=== PATIENT | female | born 1985 | race Caucasian/White ===

== ENCOUNTER 2020-09-07 16:04 | Outpatient (REF) | payer MEDICAID, SELFPAY | END 2020-09-07 16:05 | disposition home or self-care (01) | LOC: HO.LAB 16:04 | PROVIDERS: PCP Internal Medicine; Visit Provider Internal Medicine | DX: Z20.828 Contact with and (suspected) exposure to other viral communicable diseases (principal) | CPT/HCPCS: 87635 ==

== ENCOUNTER 2021-01-01 13:35 | Emergency (ER) | payer MEDICAID, SELFPAY | END 2021-01-01 17:03 | disposition left against medical advice (07) | PROVIDERS: Emergency Provider Emergency Medicine | DX: L02.91 Cutaneous abscess, unspecified (principal) ==

== ENCOUNTER 2021-03-30 14:00 | Emergency (ER) | payer MEDICAID, SELFPAY ==
[2021-03-30 14:37] VITALS: BP 141/88; PULSE 75; RESP 18; TEMP 36.6; O2SAT 100; BMI 23.8
--- NOTE | 2021-03-30 14:59 | ED.HA ---
HPI - Headache General Chief Complaint: Headache Stated Complaint: lt side headache Time Seen by Provider: 03/30/21 14:45 Source: patient Mode of arrival: ambulatory Limitations: no limitations History of Present Illness HPI Narrative: 36 y/o female with history of migraine headaches presents to the ER with 1 week of left sided headache. She states it started gradually and has gotten worse over the last week. It is throbbing in nature. It involved her entire left side of her head including ear, face and mouth. She reports increase in nasal discharge, green color the last 2 days. She has left sided sinus pain as well. No fever, chills, SOB or cough. She has been taking Excedrin Migraine and Tylenol without improvement. She denies weakness, numbness, tingling or neck pain. MD elicited complaint: headache Pertinent past history: migraines Onset (ago): week(s) (1) Onset description: gradually Location: left Severity: severe Quality & Timing: aching and throbbing Exacerbating factors: light and noise Relieving factors: rest Associated symptoms: photophobia, sensitivity to sound and other (ear pain, mouth pain, sinus pain) Treatments prior to arrival: none Related Data Previous Rx's Medication Instructions Recorded amoxicillin-pot clavulanate 1 tab PO BID #14 tab 03/30/21 [Augmentin] myhmhbcfpj-wjraohkwnipfu-xtlh 1 tab PO Q6H PRN #10 tab 03/30/21 fluticasone propionate [Flonase 1 spray INTRANASAL BID #16 g 03/30/21 Allergy Relief] Allergies Allergy/AdvReac Type Severity Reaction Status Date / Time No Known Allergies Allergy Unverified 08/10/20 17:34 Review of Systems Review of Systems: Constitutional: No Fever, No Chills ENT/Mouth: + sore throat (mild, scratchy), + Rhinorrhea, No Swallowing Difficulty Eyes: No Eye Pain, No Swelling, No Redness Cardiovascular: No Chest Pain, No SOB, No Orthopnea, No Edema Respiratory: No Cough, No Sputum, No Wheezing, No dyspnea Gastrointestinal: No Nausea, No Vomiting, No Diarrhea, No abdominal Pain Genitourinary: No Dysuria, No Urinary Frequency, No Hematuria Musculoskeletal: No joint pain, No Myalgias Skin: No Skin Lesions, No rash Neuro: No Weakness, No Numbness, No Dizziness, + Headache Heme/Lymph: No Bruising, No Lymphadenopathy [facility] Past Medical History Attestation statement: The following information was validated with the patient. Medical History Migraines Social History Social History Advance Directives: Yes Advance Directives Information Provided: No Advance Directives on File: No Patient : No Physical Exam Vital Signs: Vital Signs: Last Vital Signs Temp 98.4 F 03/30/21 15:30 Pulse 62 03/30/21 15:30 Resp 18 03/30/21 15:30 BP 145/88 H 03/30/21 15:30 Pulse Ox 100 03/30/21 15:30 Body Mass Index 23.8 Appearance: Alert. Oriented X3. Appears to be uncomfortable, tearful, crying. Eyes: Pupils equal, round and reactive to light. EOMI, no nystagmus ENT: Pharynx normal. Left TM is erythematous and bulging with fluid behind the TM without rupture Neck: Normal inspection. Neck supple. CVS: Normal heart rate and rhythm. Pulses normal. Respiratory: No respiratory distress. Breath sounds normal. Abdomen: Soft and nontender. +BS x4 Skin: Skin warm and dry. Normal skin color. Normal skin turgor. No rashes. Extremities: No lower extremity edema. Neuro: Oriented X 3. No motor deficit. No sensory deficit. Course Course Course Narrative: 36 y/o female presenting with 1 week of left sided throbbing headache that involves ear, sinus, and mouth. Exam is consistent with left sided AOM and possible sinus infection as well. Will start on Augmentin. Will also treat headache with Toradol, Benadryl and Reglan. Will reassess. Reevaluation(s) Reevaluation #1: Headache is improved. She feels better. She is stable for d/c home with PO abx, Fiorcet and Flonase. She was encouraged to f/u with PCP next week or come back to the ER if pain worsens. MDM - Headache Differential Diagnosis Differential diagnosis: Likely migraine, tension headache, headache, meningitis and sinusitis Medical Records Attestation: I reviewed the patient's medical records. Critical Care Time Critical Care Time Critical Care Time: No Discharge Plan Discharge Clinical Impression: Acute ear infection Qualifiers: Laterality: left Qualified Code(s): H66.92 - Otitis media, unspecified, left ear Headache Qualifiers: Headache type: tension-type Headache chronicity pattern: acute headache Intractability: not intractable Qualified Code(s): G44.209 - Tension-type headache, unspecified, not intractable Acute sinus infection Qualifiers: Sinusitis location: maxillary Recurrence: non-recurrent Qualified Code(s): J01.00 - Acute maxillary sinusitis, unspecified Patient Disposition: Home, Self-Care Instructions: Sinusitis (ED), Ear Infection (ED), General Headache (ED) Additional Instructions: You are being treated for a sinus & ear infection with antibiotic - take it 2 times per day for 1 week. Use the nasal spray as directed. Take the prescribed medication as needed for pain. Take Motrin as needed for headaches. Follow up with your doctor next week. If you have any worsening symptoms come back to the ER for further evaluation. Est? recibiendo tratamiento para sarah infecci?n de los senos nasales y del o?do con antibi?ticos: t?melos 2 veces al d?a terence 1 semana. Use el aerosol nasal cherelle se indica. [place] el medicamento recetado seg?n sea necesario para el dolor. [place] Motrin seg?n sea necesario para los jana de jeronimo. Jerson un seguimiento con orona m?dico la pr?xima semana. Si tiene alg?n s?ntoma que empeora, regrese a la adam de emergencias para sarah evaluaci?n adicional. Prescriptions: New amoxicillin-pot clavulanate [Augmentin] 875-125 mg tablet 1 tab PO BID Qty: 14 RF: 0 rpzsgjbbgo-mxxovthjxcyne-iiaq 50-325-40 mg tablet 1 tab PO Q6H PRN (Reason: pain) Qty: 10 RF: 0 fluticasone propionate [Flonase Allergy Relief] 50 mcg/actuation spray,suspension 1 spray intranasal BID Qty: 16 RF: 0
[2021-03-30] MEDS: Metoclopramide HCl 10 MG/2 ML VIAL IVPUSH (15:02)
[2021-03-30] MEDS: Amoxicillin/Potassium Clav 875 MG TABLET PO (15:02)
[2021-03-30] MEDS: Ketorolac Tromethamine 30 MG/ML VIAL IVPUSH (15:02)
[2021-03-30] MEDS: diphenhydrAMINE HCL 50 MG/ML VIAL 25 MG IVPUSH (15:02)
[2021-03-30 15:30] VITALS: BP 145/88; PULSE 62; RESP 18; TEMP 36.9; O2SAT 100
== END 2021-03-30 16:55 | disposition home or self-care (01) ==
PROVIDERS: Emergency Provider Emergency Medicine
DX: G44.209 Tension-type headache, unspecified, not intractable (principal); H66.92 Otitis media, unspecified, left ear; J01.00 Acute maxillary sinusitis, unspecified
CPT/HCPCS: 96374; 96375; 99283; 99284; J1200; J1885; J2765

== ENCOUNTER 2021-04-03 00:51 | Emergency (ER) | payer MEDICAID, SELFPAY ==
[2021-04-03 01:29] VITALS: BP 114/68; PULSE 85; RESP 20; TEMP 36.9; O2SAT 98; BMI 24.7
[2021-04-03] MEDS: Lidocaine HCl 2 % 20 ML VIAL INFILTRATI (01:48)
[2021-04-03 01:52] VITALS: BP 124/74; PULSE 86; RESP 18; O2SAT 98
--- NOTE | 2021-04-03 02:16 | ED_ITS ---
HPI - Skin/Abscess/Foreign Bdy General Chief complaint: Skin/Abscess/Foreign Body Stated complaint: abscess Time Seen by Provider: 04/03/21 01:21 Source: patient Mode of arrival: ambulatory History of Present Illness HPI narrative: 36-year-old female who presents with pain and swelling to the right labia that she states she has had for a little over a year but then recently it has significantly increased in size and become much more painful. She denies any associated fevers, chills, vaginal discharge associated with this. Related Data Previous Rx's Medication Instructions Recorded amoxicillin-pot clavulanate 1 tab PO BID #14 tab 03/30/21 [Augmentin] gpgtvxtuni-teujhoeyddcvu-rxsu 1 tab PO Q6H PRN #10 tab 03/30/21 fluticasone propionate [Flonase 1 spray INTRANASAL BID #16 g 03/30/21 Allergy Relief] ondansetron 4 mg PO Q8H PRN #6 tab 03/30/21 sulfamethoxazole-trimethoprim 1 tab PO Q12H 7 Days #14 tab 04/03/21 [Bactrim DS] Allergies Allergy/AdvReac Type Severity Reaction Status Date / Time No Known Allergies Allergy Verified 04/03/21 01:54 Review of Systems Review of Systems: Pertinent positives and negatives as stated in HPI 10 point review of systems is otherwise negative. PMFSH Past Medical History Source: nursing notes reviewed Medical History Migraines Social History Social History Advance Directives: No Patient : No Physical Exam Vital Signs: Vital Signs: Last Vital Signs Temp 98.5 F 04/03/21 01:29 Pulse 86 04/03/21 01:52 Resp 18 04/03/21 01:52 BP 124/74 04/03/21 01:52 Pulse Ox 98 04/03/21 01:52 Body Mass Index 24.7 VITAL SIGNS: Reviewed. GENERAL: Well developed, well nourished, in no acute distress. HEAD: Normocephalic/atraumatic EYES: PERRLA, EOMI OROPHARYNX: no oral lesions noted, posterior pharynx clear NECK: Supple, no adenopathy LUNGS: Normal breath sounds. No adventitious sounds or accessory muscle use. SpO2<98> CARDIOVASCULAR: Regular rate and rhythm without noted murmurs ABDOMEN: Soft, non-tender, non-distended with bowel sounds. PERINEAL: There is a large fluctuant mass to the right labia majora without surrounding induration or evidence of cellulitis NEUROLOGIC: Alert and oriented x 4. Course Course Course Narrative: 36-year-old female with history and clinical presentation acute on chronic abscess without systemic symptoms or evidence of more concerning infection such as Alexx's. Incision and drainage was successfully done with the relief of purulence material that was a combination of some more solid versus liquid pus. 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 Procedures Abscess I/D Site: other (Right labia majora) Side (if applicable): right Sedation/analgesia: none Local Anesthetic: lidocaine 2% Amount of anesthesia used (mL): 2 Technique: incised with blade Amount of fluid expressed (mL): 30 Sent for culture/gram staining?: No Irrigation: Yes Packing used?: iodoform Complications: pain Discharge Plan Discharge Clinical Impression: Abscess of skin or subcutaneous tissue Patient Disposition: Home, Self-Care Instructions: Abscess (ED), Abscess Incision and Drainage (DC), Warm Compress or Soak (ED) Additional Instructions: 1. Realice un seguimiento con ginecolog?a por la ma?jorge y programe sarah franklin. 2. Puede retirar el embalaje en 24 horas. 3. Recomiende el uso de ba?os de asiento que implican poner sarah hector?a cantidad de agua tibia / caliente en la ba?era con sales de [place] (esto est? disponible en todos los [facility] / [facility] / [facility]) y remojar terence 10-15 minutos al menos dos veces al d?a. 4. Tylenol 1000 mg, por v?a oral, cada 6 horas seg?n sea necesario para controlar el dolor. 5. Ibuprofeno 400 mg, por v?a oral con leche o alimentos, cada 6 horas seg?n sea necesario para controlar el dolor. Regrese a la adam de emergencias si experimenta un empeoramiento hollis de chele s?ntomas. Prescriptions: New sulfamethoxazole-trimethoprim [Bactrim DS] 800-160 mg tablet 1 tab PO Q12H 7 Days Qty: 14 RF: 0 No Action amoxicillin-pot clavulanate [Augmentin] 875-125 mg tablet 1 tab PO BID Qty: 14 RF: 0 zbwcwvjsml-fsctqnwnkustn-rcls 50-325-40 mg tablet 1 tab PO Q6H PRN (Reason: pain) Qty: 10 RF: 0 fluticasone propionate [Flonase Allergy Relief] 50 mcg/actuation spray,suspension 1 spray intranasal BID Qty: 16 RF: 0 ondansetron 4 mg tablet,disintegrating 4 mg PO Q8H PRN (Reason: nausea and vomiting) Qty: 6 RF: 0 Referrals: Physician,Unknown [Primary Care Provider] - 2 days Print Language: Ghanaian
[2021-04-03] MEDS: Ketorolac Tromethamine 15 MG/ML VIAL IM (02:27)
[2021-04-03] MEDS: Acetaminophen 325 MG TABLET 975 MG PO (02:27)
== END 2021-04-03 02:55 | disposition home or self-care (01) ==
PROVIDERS: Emergency Provider Student in an Organized Health Care Education/Training Program
DX: N76.4 Abscess of vulva (principal); R10.2 Pelvic and perineal pain
CPT/HCPCS: 56405; 96372; 99284; J1885

== ENCOUNTER 2021-05-13 17:30 | Emergency (ER) | payer MEDICAID, SELFPAY ==
[2021-05-13 17:44] VITALS: BP 143/81; PULSE 84; RESP 18; TEMP 36.8; O2SAT 100; BMI 25.6
--- NOTE | 2021-05-13 19:38 | PC.NURSE ---
PUJA HAGEN WENT TO SEE PT AND NOT IN ROOM UNWITNESSED PT LEAVING CHECKED RESTROOM. PT WAS ONLY IN ROOM 15 MIN.
== END 2021-05-13 19:53 | disposition left against medical advice (07) ==
PROVIDERS: Emergency Provider Emergency Medicine
DX: R51.9 Headache, unspecified (principal); H92.09 Otalgia, unspecified ear
CPT/HCPCS: 99281; 99283

== ENCOUNTER 2021-08-11 03:07 | Emergency (ER) | payer MEDICAID, SELFPAY ==
[2021-08-11 03:12] VITALS: BP 100/66; PULSE 88; RESP 18; TEMP 36.1; O2SAT 98; BMI 50.3
--- NOTE | 2021-08-11 03:57 | ED.HA ---
HPI - Headache General Chief Complaint: Headache Stated Complaint: Headache/Blood in stool Time Seen by Provider: 08/11/21 03:49 Source: patient Mode of arrival: ambulatory Limitations: no limitations History of Present Illness HPI Narrative: Patient history of migraine headache in complaining of headache for last few hours with light sensitivity patient does use marijuana and cocaine last use was 2 days ago no fever no chills also patient complaining of nasal congestion for last few days not vaccinated against COVID Related Data Previous Rx's Medication Instructions Recorded amoxicillin 875 mg-potassium 1 tab PO BID #14 tab 03/30/21 clavulanate 125 mg tablet (Augmentin) unkxlvzmpe-ggdvbuooctgkd-gshiqygi 1 tab PO Q6H PRN #10 tab 03/30/21 50 mg-325 mg-40 mg tablet fluticasone propionate 50 1 spray INTRANASAL BID #16 g 03/30/21 mcg/actuation nasal spray,suspension (Flonase Allergy Relief) ondansetron 4 mg disintegrating 4 mg PO Q8H PRN #6 tab 03/30/21 tablet sulfamethoxazole 800 1 tab PO Q12H 7 Days #14 tab 04/03/21 mg-trimethoprim 160 mg tablet (Bactrim DS) Allergies Allergy/AdvReac Type Severity Reaction Status Date / Time No Known Allergies Allergy Verified 04/03/21 01:54 Review of Systems Review of Systems: Yes all other systems are reviewed and are negative [facility] Past Medical History Medical History Migraines Social History Social History Advance Directives: No Patient : No Physical Exam Vital Signs: Vital Signs: Last Vital Signs Temp 96.9 F 08/11/21 03:12 Pulse 88 08/11/21 03:12 Resp 18 08/11/21 03:12 BP 100/66 08/11/21 03:12 Pulse Ox 98 08/11/21 03:12 Body Mass Index 50.3 Appearance: Alert. Oriented X3. No acute distress. Eyes: PERRLA, No Nystagmus ENT: Pharynx normal. Oral Mucosa moist Neck: Normal inspection. Neck supple. CVS: Normal heart rate and rhythm. Pulses normal. Respiratory: No respiratory distress. Equal air entry bilateral, Abdomen: Soft and nontender. Skin: Skin warm and dry. Normal skin color. Normal skin turgor. Extremities: No lower extremity edema. Neuro: Oriented X 3. No motor deficit. No sensory deficit.No cerebellar signs , cranial nerves II-XII intact MDM - Headache Lab Data Labs: Lab Results 08/11/21 Range/Units 04:07 COVID-19 ([facility]) Negative (Negative) COVID-19 Clin Com See Note Discharge Plan Discharge Clinical Impression: Migraine Qualifiers: Migraine type: with aura Status migrainosus presence: without status migrainosus Intractability: not intractable Qualified Code(s): G43.109 - Migraine with aura, not intractable, without status migrainosus Patient Disposition: Home, Self-Care Instructions: Migraine Headache (ED) Additional Instructions: Rest at home take Tylenol/Motrin for headache Follow with PCP if any concerns Prescriptions: No Action sulfamethoxazole-trimethoprim [Bactrim DS] 800-160 mg tablet 1 tab PO Q12H 7 Days Qty: 14 RF: 0 amoxicillin-pot clavulanate [Augmentin] 875-125 mg tablet 1 tab PO BID Qty: 14 RF: 0 wghyepgtae-bihgaawrqeexq-tgqg 50-325-40 mg tablet 1 tab PO Q6H PRN (Reason: pain) Qty: 10 RF: 0 fluticasone propionate [Flonase Allergy Relief] 50 mcg/actuation spray,suspension 1 spray intranasal BID Qty: 16 RF: 0 ondansetron 4 mg tablet,disintegrating 4 mg PO Q8H PRN (Reason: nausea and vomiting) Qty: 6 RF: 0 Interventions: ED Discharge Assessment Last Done: 08/11/21 04:51 Discharge Date/Time: 08/11/21 04:52
[2021-08-11] MEDS: Butalb/Acetamin/Caff 50/325/40 TABLET 1 TAB PO (04:09)
--- NOTE | 2021-08-11 04:16 | PC.NURSE ---
PATIENT UPSET ABOUT ONLY RECEIVING A FOIRCET FOR PAIN MEDICATION. PATIENT HAVING FAMILY MEMBER INFORM THIS RN THAT THEY NEEDED SOMETHING STRONGER, THEY HAVE ALREADY BEEN TAKING TYLENOL AND ADVIL AT HOME INFORMING BOTH PATIENT AND FAMILY MEMBER THAT THE PATIENT WAS RECEIVING SOMETHING STRONGER THAN TYLENOL AND THAT THE MEDICATION WAS A CONTROLLED SUBSTANCE. STILL SEEMS DISPLEASED WITH RESPONSE, PATIENT TOOK MEDICATION WITHOUT ISSUE, KEEPS HAVING FAMILY MEMBER LOOK OUT FROM BEHIND THE CURTAIN AT RN, ASKED IF THIS NURSE COULD ASSIST WITH SOMETHING, FAMILY MEMBER NOT RESPONDING. PATIENT AWAITING COVID SWAB RESULTS.
[2021-08-11 04:26] LABS: COVID-19 Test Negative (Negative); IDNOW Serial# 9DD0AD1C
--- NOTE | 2021-08-11 04:34 | PC.NURSE ---
PATIENT HEARD FIGHTING WITH FAMILY MEMBER ST BEDSIDE, OPENING UP CURTAIN TO THE ROOM AND STORMING OUT TO THE WAITING ROOM, LEAVING THE FAMILY MEMBER IN THE ROOM. FAMILY MEMBER STATING HE TOLD HER SHE COULD NOT LEAVE AND SHES IS COMING BACK. PROVIDER MADE AWRE.
== END 2021-08-11 04:52 | disposition home or self-care (01) ==
PROVIDERS: Emergency Provider Internal Medicine
DX: G43.109 Migraine with aura, not intractable, without status migrainosus (principal); Z79.899 Other long term (current) drug therapy; Z20.822 Contact with and (suspected) exposure to COVID-19
CPT/HCPCS: 36415; 87635; 99283; 99284

== ENCOUNTER 2021-08-22 22:54 | Emergency (ER) | payer MEDICAID, SELFPAY ==
--- NOTE | ~2021-08-22 | XR_ITS ---
EXAMINATION: XR CHEST CLINICAL INFORMATION: Leukocytosis COMPARISON: 08/24/2015 TECHNIQUE: Frontal view of the chest was obtained. FINDINGS: Cardiac leads overlie the chest. The lungs are hyperexpanded. There is no focal consolidation, edema, or effusion. No pneumothorax. The cardiomediastinal silhouette is within normal limits. No acute osseous abnormality. XR/XR chest 1V IMPRESSION: Clear lungs.
--- NOTE | ~2021-08-22 | CT_ITS ---
EXAMINATION: CT HEAD WITHOUT CONTRAST CLINICAL INFORMATION: Headache COMPARISON: 02/25/2015 TECHNIQUE: Contiguous axial imaging was performed from the skull base to vertex without intravenous contrast. This CT examination was performed using dose optimization techniques as appropriate, variously including the following: * Automated exposure control * Adjustment of mA and/or kV according to patient size (this includes techniques or standardized protocols for targeted exams where dose is matched to indication/reason for exam; i.e. extremities or head) Use of iterative reconstruction technique DLP: 642 mGy-cm. FINDINGS: There is no evidence of acute intracranial hemorrhage or territorial infarction. No abnormal mass effect or midline shift is seen. Mcmahan to white matter differentiation is well preserved. No extra-axial fluid collections are identified. No hydrocephalus. No significant volume loss. There is no abnormal attenuation within the brain parenchyma. The osseous structures and soft tissues are normal. Opacified left sphenoid sinus. The mastoid air cells and visualized portions of the paranasal sinuses are otherwise well aerated. CT/CT head/brain wo con IMPRESSION: No acute intracranial pathology. Opacification of the left sphenoid sinus.
--- NOTE | 2021-08-22 23:53 | ECG_ITS ---
Test Reason : CP Blood Pressure : / mmHG Vent. Rate : 095 BPM Atrial Rate : 095 BPM P-R Int : 118 ms QRS Dur : 078 ms QT Int : 330 ms P-R-T Axes : 074 082 042 degrees QTc Int : 414 ms Normal sinus rhythm Normal ECG When compared with ECG of 28-JAN-2019 02:15, Vent. rate has increased BY 36 BPM Referred By: Sherie Duron Electronically Signed By:DAMARI CASTELLANOS
[2021-08-23 00:01] VITALS: BP 145/76; PULSE 120; RESP 22; TEMP 36.6; O2SAT 98; BMI 22.8
--- NOTE | 2021-08-23 00:19 | PC.NURSE ---
at bedside for primary eval.
--- NOTE | 2021-08-23 00:26 | PC.NURSE ---
IV established, labs and Covid obtained. Plan for EKG.
[2021-08-23 00:31] LABS: MANUAL DIFF FLAG NO
--- NOTE | 2021-08-23 00:31 | ED.GENADULT ---
HPI - General Adult General Chief complaint: General Medical Stated complaint: headache/chest pain Time Seen by Provider: 08/22/21 23:52 Source: patient Mode of arrival: ambulatory Limitations: no limitations History of Present Illness HPI narrative: Patient comes emergency room complaining of left-sided headache, patient states it has been present and persistent for 6 months. Patient states it is not intermittent, it is constant. Patient also complaining of generalized body aches, chest pain for 2-3 hours. Patient states she will test for COVID 1 week ago and was negative. Related Data Previous Rx's Medication Instructions Recorded amoxicillin 875 mg-potassium 1 tab PO BID #14 tab 03/30/21 clavulanate 125 mg tablet (Augmentin) igjjnzgfgr-kyuzyhviwwhwn-gbsvdvwq 1 tab PO Q6H PRN #10 tab 03/30/21 50 mg-325 mg-40 mg tablet fluticasone propionate 50 1 spray INTRANASAL BID #16 g 03/30/21 mcg/actuation nasal spray,suspension (Flonase Allergy Relief) ondansetron 4 mg disintegrating 4 mg PO Q8H PRN #6 tab 03/30/21 tablet sulfamethoxazole 800 1 tab PO Q12H 7 Days #14 tab 04/03/21 mg-trimethoprim 160 mg tablet (Bactrim DS) sefkjuvghb-xwqchudyxgiao-sszeqvww 1 tab PO Q4-6H PRN #10 tab 08/23/21 50 mg-325 mg-40 mg tablet Allergies Allergy/AdvReac Type Severity Reaction Status Date / Time No Known Allergies Allergy Verified 04/03/21 01:54 Review of Systems Review of Systems: Constitutional : No Weight loss, No Fever, No Chills, No Night Sweats, complaining of generalized malaise ENT/Mouth : No Hearing loss, No Ear Pain, No Nasal Congestion, No Sinus Pain, No Hoarseness, No sore throat, No Rhinorrhea, No Swallowing Difficulty Eyes: No Eye Pain, No Swelling, No Redness, No Foreign Body, No Discharge, No Vision Changes Cardiovascular : No Chest Pain, No SOB, No Dyspnea on Exertion, No Orthopnea, No Edema, No Palpitations Respiratory : No Cough, No Sputum, No Wheezing, No Smoke Exposure, No Dyspnea Gastrointestinal : No Nausea, No Vomiting, No Diarrhea, No Constipation, No abdominal Pain, No Hematochezia, No Melena Genitourinary : no irregular bleeding, No Dysuria, No Urinary Frequency, No Hematuria, No Urinary Incontinence, No Urgency, No Flank Pain, No Urinary Flow Changes, No Hesitancy Musculoskeletal : No joint pain, No Myalgias, No Joint Swelling Skin : No Skin Lesions, No rash Neuro : Complaining of weakness, numbness, paresthesia, no loss of consciousness, complaining of a headache that has been present for about 6 months Psych : No Anxiety/Panic, No Depression, No SI/HI/AH/VH, No Social Issues, Heme/Lymph: No Bruising, No Bleeding,No Lymphadenopathy Endocrine : No Polyuria, No Polydipsia, No Temperature Intolerance PMFSH Past Medical History Medical History Migraines Social History Social History Advance Directives: No Advance Directives Information Provided: No Patient : No Physical Exam Vital Signs: Vital Signs: Last Vital Signs Temp 99.0 F 08/23/21 01:35 Pulse 98 08/23/21 01:35 Resp 16 08/23/21 01:35 BP 116/68 08/23/21 01:35 Pulse Ox 99 08/23/21 01:35 Body Mass Index 22.8 Const: Other: Appearance: Alert. Oriented X3. No acute distress. Eyes: Pupils equal, round and reactive to light. ENT: Pharynx normal. Neck: Normal inspection. Neck supple. No lymph nodes noted. No crepitus. Patient is able to flex and extend the neck with no difficulty or pain/stiffness CVS: Normal heart rate and rhythm. Pulses normal. Normal S1 and S2 Respiratory: No respiratory distress. Breath sounds normal. No Wheezing. No rales Abdomen: Soft and nontender. No rigidity. No distention. Skin: Skin warm and dry. Normal skin color. Normal skin turgor. Palpable lipoma over the right clavicle, soft, movable, not adhered to the clavicle Extremities: No lower extremity edema. No Lacerations. No Rash Neuro: Oriented X 3. No motor deficit. No sensory deficit. Moving all extermities. No slurred speech. Course Course Course Narrative: Patient states that her migraine headache is improving with IV Toradol/Reglan/Benadryl. Patient is ambulatory, no longer photophobic. Patient's head CT is pending. Dispo: Likely going home. Sign-out given to Dr. Lafleur Medical Decision Making Lab Data Result diagrams: 08/23/21 00:26 08/23/21 00:26 Labs: Lab Results 08/23/21 08/23/21 08/23/21 Range/Units 00:26 00:26 00:26 WBC 14.9 H (4.8-10.8) X10*3/uL RBC 4.35 (4.20-5.50) X10*6/uL Hgb 13.5 (12.0-16.0) g/dl Hct 39.8 (37-47) % MCV 91.5 (80-98) fL MCH 31.0 (27.0-33.0) pg MCHC 33.9 (31.0-35.0) g/dl RDW 12.4 (11.0-16.0) % Plt Count 351 (160-400) X10*3/uL MPV 9.2 L (9.4-12.3) fL Immature Gran % (Auto) 0.3 (0.0-0.4) % Neut % (Auto) 67.0 (45-73) % Lymph % (Auto) 24.6 (20-40) % [place] % (Auto) 7.0 (2-11) % Eos % (Auto) 0.6 (0-4) % Baso % (Auto) 0.5 (0-2) % Lymph # (Auto) 3.7 (1.2-4.9) X10*3/uL [place] # (Auto) 1.1 (0.1-1.2) X10*3/uL Eos # (Auto) 0.1 (0.0-0.4) X10*3/uL Baso # (Auto) 0.1 (0.0-0.2) X10*3/uL Abs Immat Gran (auto) 0.04 H (0.00-0.03) X10*3/uL Absolute Neuts (auto) 10.0 H (2.0-8.3) X10*3/uL Absolute Nucleated RBC 0.000 (0.0-0.012) X10*3/uL Nucleated RBC % (auto) 0.0 (0.0-0.2) /100WBC Sodium 136 (135-145) mmol/L Potassium 4.0 (3.3-5.1) mmol/L Chloride 102 (96-108) mmol/L Carbon Dioxide 25 (22-29) mmol/L Anion Gap 13 (12-20) BUN 9 (9-16) mg/dL Creatinine 0.79 (0.5-1.4) mg/dL Estim Creat Clear Calc 76.3 Estimated GFR > 60 Random Glucose 100 (60-115) mg/dL Calcium 9.2 (8.4-10.2) mg/dL Troponin I High Sens < 3.5 (<3.5-17.0) ng/L Beta HCG, Quant < 2 mIU/mL Urine Color Urine Appearance Urine pH (5.0-8.0) Ur Specific [place] (1.005-1.025) Urine Protein (NEG-TRACE) MG/DL Urine Glucose (UA) (NEG) MG/DL Urine Ketones (NEG) MG/DL Urine Blood (NEG) Urine Nitrite (NEG) Ur Leukocyte Esterase (NEG) COVID-19 ([facility]) (Negative) COVID-19 Clin Com 08/23/21 08/23/21 Range/Units 00:26 01:33 WBC (4.8-10.8) X10*3/uL RBC (4.20-5.50) X10*6/uL Hgb (12.0-16.0) g/dl Hct (37-47) % MCV (80-98) fL MCH (27.0-33.0) pg MCHC (31.0-35.0) g/dl RDW (11.0-16.0) % Plt Count (160-400) X10*3/uL MPV (9.4-12.3) fL Immature Gran % (Auto) (0.0-0.4) % Neut % (Auto) (45-73) % Lymph % (Auto) (20-40) % [place] % (Auto) (2-11) % Eos % (Auto) (0-4) % Baso % (Auto) (0-2) % Lymph # (Auto) (1.2-4.9) X10*3/uL [place] # (Auto) (0.1-1.2) X10*3/uL Eos # (Auto) (0.0-0.4) X10*3/uL Baso # (Auto) (0.0-0.2) X10*3/uL Abs Immat Gran (auto) (0.00-0.03) X10*3/uL Absolute Neuts (auto) (2.0-8.3) X10*3/uL Absolute Nucleated RBC (0.0-0.012) X10*3/uL Nucleated RBC % (auto) (0.0-0.2) /100WBC Sodium (135-145) mmol/L Potassium (3.3-5.1) mmol/L Chloride (96-108) mmol/L Carbon Dioxide (22-29) mmol/L Anion Gap (12-20) BUN (9-16) mg/dL Creatinine (0.5-1.4) mg/dL Estim Creat Clear Calc Estimated GFR Random Glucose (60-115) mg/dL Calcium (8.4-10.2) mg/dL Troponin I High Sens (<3.5-17.0) ng/L Beta HCG, Quant mIU/mL Urine Color YELLOW Urine Appearance CLEAR Urine pH 6.0 (5.0-8.0) Ur Specific [place] >= 1.030 H (1.005-1.025) Urine Protein NEG (NEG-TRACE) MG/DL Urine Glucose (UA) NEG (NEG) MG/DL Urine Ketones NEG (NEG) MG/DL Urine Blood NEG (NEG) Urine Nitrite NEG (NEG) Ur Leukocyte Esterase NEG (NEG) COVID-19 ([facility]) Negative (Negative) COVID-19 Clin Com See Note Discharge Plan Discharge Clinical Impression: Migraine Patient Disposition: Home, Self-Care Instructions: Migraine Headache (ED) Additional Instructions: Please follow-up with your primary care physician tomorrow. If you have any worsening or new symptoms, please return to the emergency room or call 911 Prescriptions: New iqwpkffvqa-lkzjmvmesganm-assw 50-325-40 mg tablet 1 tab PO Q4-6H PRN (Reason: pain) Qty: 10 RF: 0 No Action sulfamethoxazole-trimethoprim [Bactrim DS] 800-160 mg tablet 1 tab PO Q12H 7 Days Qty: 14 RF: 0 amoxicillin-pot clavulanate [Augmentin] 875-125 mg tablet 1 tab PO BID Qty: 14 RF: 0 tazxujjlew-ufwxnndwynnpy-jrod 50-325-40 mg tablet 1 tab PO Q6H PRN (Reason: pain) Qty: 10 RF: 0 fluticasone propionate [Flonase Allergy Relief] 50 mcg/actuation spray,suspension 1 spray intranasal BID Qty: 16 RF: 0 ondansetron 4 mg tablet,disintegrating 4 mg PO Q8H PRN (Reason: nausea and vomiting) Qty: 6 RF: 0
[2021-08-23 00:32] LABS: Basophils Absolute Auto 0.1 X10*3/uL (0.0-0.2); Basophils Percent Auto 0.5 % (0-2); Eosinophils Absolute Auto 0.1 X10*3/uL (0.0-0.4); Eosinophils Percent Auto 0.6 % (0-4); Hematocrit 39.8 % (37-47); Hemoglobin 13.5 g/dl (12.0-16.0); Imm Gran Abs Auto 0.04 X10*3/uL (0.00-0.03); Imm Gran Pct Auto 0.3 % (0.0-0.4); Lymphocytes Absolute Auto 3.7 X10*3/uL (1.2-4.9); Lymphocytes Percent Auto 24.6 % (20-40); Mean Corpuscular HGB Conc 33.9 g/dl (31.0-35.0); Mean Corpuscular Volume 91.5 fL (80-98); Mean Platelet Volume 9.2 fL (9.4-12.3); Monocytes Absolute Auto 1.1 X10*3/uL (0.1-1.2); Platelet Count 351 X10*3/uL (160-400); Red Blood Count 4.35 X10*6/uL (4.20-5.50); Red Cell Distribution Width 12.4 % (11.0-16.0); White Blood Count 14.9 X10*3/uL (4.8-10.8)
[2021-08-23] MEDS: Ketorolac Tromethamine 15 MG/ML VIAL 30 MG IVPUSH (00:43)
[2021-08-23] MEDS: Metoclopramide HCl 10 MG/2 ML VIAL IVPUSH (00:44)
[2021-08-23] MEDS: diphenhydrAMINE HCL 50 MG/ML VIAL 25 MG IVPUSH (00:45)
[2021-08-23] MEDS: 0.9 % Sodium Chloride 1,000 ML 999 ML IVCONT ×2 (00:45→01:34)
[2021-08-23 00:46] LABS: COVID-19 Test Negative (Negative); IDNOW Serial# 9DD0AD1C
[2021-08-23 00:51] LABS: Anion Gap 13 (12-20); Blood Urea Nitrogen 9 mg/dL (9-16); Calcium 9.2 mg/dL (8.4-10.2); Carbon Dioxide 25 mmol/L (22-29); Chloride 102 mmol/L (96-108); Creatinine Clr Calc Pharmacy 76.3; Estimated Glomerular Filt Rate > 60; Glucose Random 100 mg/dL (60-115); Sodium 136 mmol/L (135-145)
[2021-08-23 00:58] LABS: Troponin-I High Sensitivity < 3.5 ng/L (<3.5-17.0)
--- NOTE | 2021-08-23 01:01 | PC.NURSE ---
PT medicated per JAN. PT asked to provide urine sample.
[2021-08-23 01:12] LABS: HCG Quantitative < 2 mIU/mL
[2021-08-23 01:35] VITALS: BP 116/68; PULSE 98; RESP 16; TEMP 37.2; O2SAT 99
[2021-08-23 01:46] LABS: Appearance Urine CLEAR; Color Urine YELLOW; Glucose Urine UA NEG (NEG); Leukocyte Esterase Urine NEG (NEG); Nitrite Urine NEG (NEG); Specific Gravity - Urine >= 1.030 (1.005-1.025); Urine Blood NEG (NEG); Urine Ketones NEG (NEG); Urine Protein NEG (NEG-TRACE)
[2021-08-23 01:47] LABS: UACC Culture Trigger NO
[2021-08-23 02:06] LABS: Amphetamine Screen Urine Not Detected (Not Detect); Barbiturates, Urine Not Detected (Not Detect); Benzodiazepines Screen Urine Not Detected (Not Detect); Cannabinoid Screen Urine POSITIVE (Not Detect); Cocaine Screen Urine POSITIVE (Not Detect); Fentanyl, urine POSITIVE (Not Detect); Opiate Screen Urine Not Detected (Not Detect); Phencyclidine Screen Urine POSITIVE (Not Detect)
== END 2021-08-23 03:23 | disposition home or self-care (01) ==
PROVIDERS: Emergency Provider Emergency Medicine
DX: G43.909 Migraine, unspecified, not intractable, without status migrainosus (principal); R07.9 Chest pain, unspecified; Z79.899 Other long term (current) drug therapy; Z20.822 Contact with and (suspected) exposure to COVID-19
CPT/HCPCS: 36415; 70450; 71045; 80048; 80307; 81003; 84484; 84702; 85025; 87635; 93005; 96361; 96374; 96375; 99284; J1200; J1885; J2765

== ENCOUNTER 2022-11-22 13:51 | Emergency (ER) | payer MEDICAID, SELFPAY ==
--- NOTE | ~2022-11-22 | CT_ITS ---
EXAMINATION: CT ABDOMEN AND PELVIS WITH CONTRAST CLINICAL INFORMATION: Abdominal pain COMPARISON: CT abdomen and pelvis 07/03/2011 TECHNIQUE: Multidetector volumetric images were obtained from the superior aspect of the liver through the pubic symphysis following administration 85 mL of Omnipaque 350 intravenous contrast. Sagittal and coronal reformatted images were obtained on the technologist's workstation. Oral contrast: No This CT examination was performed using dose optimization techniques as appropriate, variously including the following: *Automated exposure control *Adjustment of mA and/or kV according to patient size (this includes techniques or standardized protocols for targeted exams where dose is matched to indication/reason for exam; i.e. extremities or head) *Use of iterative reconstruction technique DLP: 567 mGy-cm FINDINGS: LUNG BASES: The visualized lung bases are unremarkable. LIVER, GALLBLADDER, AND BILIARY TREE: The liver is normal in size, shape, and attenuation. No focal hepatic lesion or biliary ductal dilatation is present. The gallbladder is unremarkable with no evidence of radiopaque gallstones, gallbladder wall thickening, or obvious pericholecystic inflammatory changes. PANCREAS: Unremarkable. SPLEEN: Unremarkable. ADRENAL GLANDS: Unremarkable. KIDNEYS AND URETERS: The kidneys are normal in size, shape, and attenuation. No hydronephrosis, hydroureter, or calculi seen. No perinephric stranding. BLADDER: Unremarkable. GASTROINTESTINAL TRACT: The small and large bowel are unremarkable. The appendix is unremarkable. No pneumoperitoneum or ascites. ABDOMINAL WALL: Small fat-containing umbilical hernia. LYMPH NODES: No lymphadenopathy. VASCULAR: Unremarkable. PELVIC VISCERA: The uterus and adnexa are unremarkable. OSSEOUS STRUCTURES: No acute fracture or suspicious osseous lesion. Severe degenerative disc disease at the lumbosacral junction. CT/CT abdomen pelvis w IV con IMPRESSION: No acute intra-abdominal process identified.
--- NOTE | 2022-11-22 15:51 | ED.URI ---
HPI - URI/Sore Throat General Chief Complaint: General Medical <Mariana Miller CNP - Last Filed: 11/22/22 15:55> Stated Complaint: Flu Symptoms <Mariana Miller CNP - Last Filed: 11/22/22 15:55> Time Seen by Provider: 11/22/22 19:10 <Mariana Miller CNP - Last Filed: 11/22/22 15:55> Source: patient <PUJA Weber - Last Filed: 11/22/22 23:14> Mode of arrival: ambulatory <PUJA Weber - Last Filed: 11/22/22 23:14> Limitations: no limitations <PUJA Weber - Last Filed: 11/22/22 23:14> History of Present Illness HPI Narrative: This is a 37-year-old female no significant medical history presenting to the emergency department with 3 days of subjective fevers, chills, runny nose, myalgias, nausea, vomiting, diarrhea with 1 episode of bright red blood per rectum today which is now resolved. Patient tells me earlier today she had an episode of diarrhea with bright red blood in it. She tells me she has gone to the bathroom since that episode in it has been just normal color diarrhea. Patient also reporting diffuse abdominal pain and intermittent dysuria. Patient tells me she has not had any sick contacts. She is not vaccinated against flu or COVID. Reports intermittent chest pain and shortness of breath. Denies headache, vision changes, weakness <PUJA Weber - Last Filed: 11/22/22 23:14> Related Data Home Medications: Previous Rx's Medication Instructions Recorded amoxicillin 875 mg-potassium 1 tab PO BID #14 tabs 03/30/21 clavulanate 125 mg tablet (Augmentin) fhgslgraam-cbibyxajdhokl-cjclqwfu 1 tab PO Q6H PRN pain #10 tabs 03/30/21 50 mg-325 mg-40 mg tablet fluticasone propionate 50 1 spray intranasal BID #16 grams 03/30/21 mcg/actuation nasal spray,suspension (Flonase Allergy Relief) ondansetron 4 mg disintegrating 4 mg PO Q8H PRN nausea and 03/30/21 tablet vomiting #6 tabs sulfamethoxazole 800 1 tab PO Q12H 7 days #14 tabs 04/03/21 mg-trimethoprim 160 mg tablet (Bactrim DS) clycysincr-zatoevecszgtb-gbfhgjbk 1 tab PO Q4-6H PRN pain #10 tabs 08/23/21 50 mg-325 mg-40 mg tablet fluticasone propionate 50 2 spray intranasal DAILY #16 grams 08/23/21 mcg/actuation nasal spray,suspension (Flonase Allergy Relief) <Mariana Miller CNP - Last Filed: 11/22/22 15:55> Allergies/Adverse Reactions: Allergies Allergy/AdvReac Type Severity Reaction Status Date / Time No Known Allergies Allergy Verified 04/03/21 01:54 <Mariana Miller CNP - Last Filed: 11/22/22 15:55> Review of Systems Review of Systems: Constitutional : No Weight loss, + Fever, + Chills, + Fatigue, + Malaise ENT/Mouth : No sore throat, No Rhinorrhea Eyes: No Eye Pain, No Swelling, No Redness Cardiovascular : No Chest Pain, No SOB, No Dyspnea on Exertion, No Orthopnea, No Edema, No Palpitations Respiratory : No Cough, No Sputum, No Wheezing Gastrointestinal : + Nausea, + Vomiting, + Diarrhea, No Constipation, + abdominal Pain, No Hematochezia, No Melena Genitourinary : No Dysuria, No Urinary Frequency, No Hematuria, Musculoskeletal : No joint pain, + Myalgias, No Joint Swelling Skin : No Skin Lesions, No rash Neuro : No Weakness, No Numbness, No Dizziness, No Headache Psych : No Anxiety/Panic, No Depression All other systems reviewed and are negative <PUJA Weber - Last Filed: 11/22/22 23:14> Yes all other systems are reviewed and are negative <PUJA Weber - Last Filed: 11/22/22 23:14> [facility] Past Medical History Attestation statement: The following information was validated with the patient. <PUJA Weber - Last Filed: 11/22/22 23:14> Source: old records reviewed and nursing notes reviewed <PUJA Weber - Last Filed: 11/22/22 23:14> Medical History: Medical History Migraines <Mariana MillerMEREDITH - Last Filed: 11/22/22 15:55> Social History Social History: Social History Advance Directives: No Advance Directives Information Provided: No <Mariana EricksonMEREDITH kumar - Last Filed: 11/22/22 15:55> Physical Exam Vital Signs: Vital Signs: Last Vital Signs Temp 99.4 F 11/22/22 20:23 Pulse 68 11/22/22 20:23 Resp 17 11/22/22 20:23 BP 106/74 11/22/22 20:23 Pulse Ox 99 11/22/22 20:23 O2 Del Method 11/22/22 20:23 BMI result Body Mass Index 25.6 <Mariana EricksonMEREDITH kumar - Last Filed: 11/22/22 15:55> Vital Signs: Last Vital Signs Temp 99.4 F 11/22/22 20:23 Pulse 68 11/22/22 20:23 Resp 17 11/22/22 20:23 BP 106/74 11/22/22 20:23 Pulse Ox 99 11/22/22 20:23 O2 Del Method 11/22/22 20:23 BMI result Body Mass Index 25.6 Vital signs stable <PUJA Weber - Last Filed: 11/22/22 23:14> Appearance: Alert.? Oriented X3.? No acute distress.? Head: Normocephalic, atraumatic, no step-offs or deformities Eyes: Pupils equal, round and reactive to light.? ENT: Pharynx normal.? Neck: Normal inspection.? Neck supple.? CVS: Normal heart rate and rhythm.? Pulses normal.? Respiratory: No respiratory distress.? Breath sounds normal.? Abdomen: Soft and diffusely tender abdomen.? Skin: Skin warm and dry.? Normal skin color.? Normal skin turgor.? Extremities: No lower extremity edema.? No calf ttp, negative ahsan b;l. 5/5 strength to bilateral upper and lower extremities Neuro: Oriented X 3.? No motor deficit.? No sensory deficit. CN 2-12 intact <PUJA Weber - Last Filed: 11/22/22 23:14> Course Course Course Narrative: Patient is a 37-year-old female who presents to the emergency department for evaluation of multiple complaints. She reports symptom onset 3 days ago. Fevers, chills, upper respiratory symptoms, nausea, vomiting, diarrhea x5, bright red blood per rectum, diffuse abdominal pain, intermittent dysuria. Denies possibility of . Denies vaccination for COVID-19 or influenza. Denies any known sick contacts. Plan: Labs, urinalysis, urine , viral testing, will require rectal examination an occult stool sample. <Mariana Miller CNP - Last Filed: 11/22/22 15:55> Reevaluation(s) Reevaluation #1: CBC appears to be within normal limits. Chemistry with no acute electrolyte abnormalities requiring intervention. Troponin negative, unlikely ACS. Lipase within normal limits. Urine clean. PERC negative unlikley PE. Patient noted to be positive for COVID-19 educated on supportive measures and CDC guidelines, they will be attached to her discharge. CT of the abdomen and pelvis pending. Patient without significant risk factors therefore no need for paxlovid. Patient refusing OBS and would not like repeat laboratory studies. She tells me she has not had any episodes of bloody diarrhea and this was only a single episode. Educated her that if this worsens she must return immediately. <PUJA Weber - Last Filed: 11/22/22 23:14> Time: 21:59 <PUJA Weber - Last Filed: 11/22/22 23:14> Reevaluation #2: CT of the abdomen pelvis with no acute findings. Patient tells me she would like to go home. Feeling slightly better. Educated patient on diagnosis and treatment plan, answered all question, patient verbalizes understanding. At this time patient will be discharged home, advised to return with new or worsening symptoms. Educated on worrisome signs and symptoms and when to return. At this time I feel comfortable discharge home. <PUJA Weber - Last Filed: 11/22/22 23:14> Time: 23:14 <PUJA Weber Last Filed: 11/22/22 23:14> Medications Administered Discontinued Medications Generic Name Dose Route Start Last Admin Trade Name Freq PRN Reason Stop Dose Admin Iohexol 100 ml 11/22/22 21:30 11/22/22 21:31 Iohexol 350 Mg/Ml 100 Ml Infus..Btl IV 11/22/22 21:31 85 ml ONCE ONE Administration Ketorolac Tromethamine 30 mg 11/22/22 22:09 11/22/22 22:22 Ketorolac Tromethamine 15 Mg/Ml Vial IM 11/22/22 22:10 30 mg ONCE ONE Administration <Mariana Miller CNP - Last Filed: 11/22/22 15:55> Medications Administered Discontinued Medications Generic Name Dose Route Start Last Admin Trade Name Freq PRN Reason Stop Dose Admin Iohexol 100 ml 11/22/22 21:30 11/22/22 21:31 Iohexol 350 Mg/Ml 100 Ml Infus..Btl IV 11/22/22 21:31 85 ml ONCE ONE Administration Ketorolac Tromethamine 30 mg 11/22/22 22:09 11/22/22 22:22 Ketorolac Tromethamine 15 Mg/Ml Vial IM 11/22/22 22:10 30 mg ONCE ONE Administration <PUJA Weber - Last Filed: 11/22/22 23:14> Medical Decision Making Medical Decision Making MDM Narrative: 2006 37-year-old female presenting with flu/COVID like symptoms x3 days. Reported 1 episode of bright red blood per rectum with diarrhea which has not resolved. Denies sick contacts. Not vaccinated against lower COVID. Physical examination with diffusely tender abdomen however no signs of peritonitis. History and physical examination likely viral infection. I do not suspect acute abdomen, appendicitis, cholecystitis, lower GI bleed. Unlikely ACS or PE. Plan at this time basic labs, imaging of the abdomen, urine, viral testing. <PUJA Weber - Last Filed: 11/22/22 23:14> Lab Data Result Diagrams: : 11/22/22 17:01 11/22/22 17:01 <Mariana Miller CNP - Last Filed: 11/22/22 15:55> Labs: Lab Results 12/30/22 12/30/22 12/30/22 Range/Units 17:01 17:01 17:01 WBC 6.2 (4.8-10.8) X10*3/uL RBC 4.42 (4.20-5.50) X10*6/uL Hgb 13.4 (12.0-16.0) g/dl Hct 39.1 (37.0-47.0) % MCV 88.5 (80.0-98.0) fL MCH 30.3 (27.0-33.0) pg MCHC 34.3 (31.0-35.0) g/dl RDW 13.0 (11.0-16.0) % Plt Count 268 (160-400) X10*3/uL MPV 10.1 (9.4-12.3) fL Immature Gran % (Auto) 0.2 (0.0-0.4) % Neut % (Auto) 78.0 H (45-73) % Lymph % (Auto) 7.9 L (20-40) % Saunders % (Auto) 13.1 H (2-11) % Eos % (Auto) 0.2 (0-4) % Baso % (Auto) 0.6 (0-2) % Lymph # (Auto) 0.5 L (1.2-4.9) X10*3/uL Saunders # (Auto) 0.8 (0.1-1.2) X10*3/uL Eos # (Auto) 0.0 (0.0-0.4) X10*3/uL Baso # (Auto) 0.0 (0.0-0.2) X10*3/uL Abs Immat Gran (auto) 0.01 (0.00-0.03) X10*3/uL Absolute Neuts (auto) 4.9 (2.0-8.3) x10*3/uL Absolute Nucleated RBC 0.000 (0.0-0.012) X10*3/uL Nucleated RBC % (auto) 0.0 (0.0-0.2) /100WBC Sodium 139 (135-145) mmol/L Potassium 4.1 (3.3-5.1) mmol/L Chloride 104 (96-108) mmol/L Carbon Dioxide 25 (22-29) mmol/L Anion Gap 14 (12-20) BUN 7 L (9-16) mg/dL Creatinine 0.81 (0.5-1.4) mg/dL Estim Creat Clear Calc 81.6 Estimated GFR > 60 Random Glucose 108 (60-115) mg/dL Calcium 9.1 (8.4-10.2) mg/dL Total Bilirubin 0.4 (0.0-1.0) mg/dL AST 27 (5-31) U/L ALT 25 (0-31) U/L Alkaline Phosphatase 108 (39-117) U/L Troponin I High Sens (<3.5-17.0) ng/L Total Protein 7.5 (6.5-8.0) g/dL Albumin 4.1 (3.5-5.0) g/dL Lipase 8 (8-78) U/L Urine Color Yellow Urine Appearance Clear Urine pH 7.5 (5.0-9.0) Ur Specific [place] 1.015 (1.005-1.025) Urine Protein Negative (Neg-Trace) mg/dL Urine Glucose (UA) Negative (Negative) mg/dL Urine Ketones Negative (Negative) mg/dL Urine Blood Negative (Negative) Urine Nitrite Negative (Negative) Ur Leukocyte Esterase Negative (Negative) Urine Test (NEGATIVE) COVID-19 ([facility]RA) (Negative) COVID-19 Clin Com Influenza Type A (AYDEN) (Negative) Influenza Type B (AYDEN) (Negative) Influenza A & B Note Blood Type Antibody Screen 11/22/22 11/22/22 11/22/22 Range/Units 17:01 17:01 17:01 WBC (4.8-10.8) X10*3/uL RBC (4.20-5.50) X10*6/uL Hgb (12.0-16.0) g/dl Hct (37.0-47.0) % MCV (80.0-98.0) fL MCH (27.0-33.0) pg MCHC (31.0-35.0) g/dl RDW (11.0-16.0) % Plt Count (160-400) X10*3/uL MPV (9.4-12.3) fL Immature Gran % (Auto) (0.0-0.4) % Neut % (Auto) (45-73) % Lymph % (Auto) (20-40) % Saunders % (Auto) (2-11) % Eos % (Auto) (0-4) % Baso % (Auto) (0-2) % Lymph # (Auto) (1.2-4.9) X10*3/uL Saunders # (Auto) (0.1-1.2) X10*3/uL Eos # (Auto) (0.0-0.4) X10*3/uL Baso # (Auto) (0.0-0.2) X10*3/uL Abs Immat Gran (auto) (0.00-0.03) X10*3/uL Absolute Neuts (auto) (2.0-8.3) x10*3/uL Absolute Nucleated RBC (0.0-0.012) X10*3/uL Nucleated RBC % (auto) (0.0-0.2) /100WBC Sodium (135-145) mmol/L Potassium (3.3-5.1) mmol/L Chloride (96-108) mmol/L Carbon Dioxide (22-29) mmol/L Anion Gap (12-20) BUN (9-16) mg/dL Creatinine (0.5-1.4) mg/dL Estim Creat Clear Calc Estimated GFR Random Glucose (60-115) mg/dL Calcium (8.4-10.2) mg/dL Total Bilirubin (0.0-1.0) mg/dL AST (5-31) U/L ALT (0-31) U/L Alkaline Phosphatase (39-117) U/L Troponin I High Sens < 3.5 (<3.5-17.0) ng/L Total Protein (6.5-8.0) g/dL Albumin (3.5-5.0) g/dL Lipase (8-78) U/L Urine Color Urine Appearance Urine pH (5.0-9.0) Ur Specific [place] (1.005-1.025) Urine Protein (Neg-Trace) mg/dL Urine Glucose (UA) (Negative) mg/dL Urine Ketones (Negative) mg/dL Urine Blood (Negative) Urine Nitrite (Negative) Ur Leukocyte Esterase (Negative) Urine Test NEGATIVE (NEGATIVE) COVID-19 ([facility]HRA) (Negative) COVID-19 Clin Com Influenza Type A (AYDEN) (Negative) Influenza Type B (AYDEN) (Negative) Influenza A & B Note Blood Type O Positive Antibody Screen NEGATIVE 11/22/22 11/22/22 Range/Units 17:03 17:03 WBC (4.8-10.8) X10*3/uL RBC (4.20-5.50) X10*6/uL Hgb (12.0-16.0) g/dl Hct (37.0-47.0) % MCV (80.0-98.0) fL MCH (27.0-33.0) pg MCHC (31.0-35.0) g/dl RDW (11.0-16.0) % Plt Count (160-400) X10*3/uL MPV (9.4-12.3) fL Immature Gran % (Auto) (0.0-0.4) % Neut % (Auto) (45-73) % Lymph % (Auto) (20-40) % Saunders % (Auto) (2-11) % Eos % (Auto) (0-4) % Baso % (Auto) (0-2) % Lymph # (Auto) (1.2-4.9) X10*3/uL Saunders # (Auto) (0.1-1.2) X10*3/uL Eos # (Auto) (0.0-0.4) X10*3/uL Baso # (Auto) (0.0-0.2) X10*3/uL Abs Immat Gran (auto) (0.00-0.03) X10*3/uL Absolute Neuts (auto) (2.0-8.3) x10*3/uL Absolute Nucleated RBC (0.0-0.012) X10*3/uL Nucleated RBC % (auto) (0.0-0.2) /100WBC Sodium (135-145) mmol/L Potassium (3.3-5.1) mmol/L Chloride (96-108) mmol/L Carbon Dioxide (22-29) mmol/L Anion Gap (12-20) BUN (9-16) mg/dL Creatinine (0.5-1.4) mg/dL Estim Creat Clear Calc Estimated GFR Random Glucose (60-115) mg/dL Calcium (8.4-10.2) mg/dL Total Bilirubin (0.0-1.0) mg/dL AST (5-31) U/L ALT (0-31) U/L Alkaline Phosphatase (39-117) U/L Troponin I High Sens (<3.5-17.0) ng/L Total Protein (6.5-8.0) g/dL Albumin (3.5-5.0) g/dL Lipase (8-78) U/L Urine Color Urine Appearance Urine pH (5.0-9.0) Ur Specific [place] (1.005-1.025) Urine Protein (Neg-Trace) mg/dL Urine Glucose (UA) (Negative) mg/dL Urine Ketones (Negative) mg/dL Urine Blood (Negative) Urine Nitrite (Negative) Ur Leukocyte Esterase (Negative) Urine Test (NEGATIVE) COVID-19 ([facility]HRA) Positive A (Negative) COVID-19 Clin Com See Note Influenza Type A (AYDEN) Negative (Negative) Influenza Type B (ADYEN) Negative (Negative) Influenza A & B Note See Note Blood Type Antibody Screen <Mariana Miller, MEREDITH - Last Filed: 11/22/22 15:55> Lab Results 11/22/22 11/22/22 11/22/22 Range/Units 17:01 17:01 17:01 WBC 6.2 (4.8-10.8) X10*3/uL RBC 4.42 (4.20-5.50) X10*6/uL Hgb 13.4 (12.0-16.0) g/dl Hct 39.1 (37.0-47.0) % MCV 88.5 (80.0-98.0) fL MCH 30.3 (27.0-33.0) pg MCHC 34.3 (31.0-35.0) g/dl RDW 13.0 (11.0-16.0) % Plt Count 268 (160-400) X10*3/uL MPV 10.1 (9.4-12.3) fL Immature Gran % (Auto) 0.2 (0.0-0.4) % Neut % (Auto) 78.0 H (45-73) % Lymph % (Auto) 7.9 L (20-40) % Saunders % (Auto) 13.1 H (2-11) % Eos % (Auto) 0.2 (0-4) % Baso % (Auto) 0.6 (0-2) % Lymph # (Auto) 0.5 L (1.2-4.9) X10*3/uL Saunders # (Auto) 0.8 (0.1-1.2) X10*3/uL Eos # (Auto) 0.0 (0.0-0.4) X10*3/uL Baso # (Auto) 0.0 (0.0-0.2) X10*3/uL Abs Immat Gran (auto) 0.01 (0.00-0.03) X10*3/uL Absolute Neuts (auto) 4.9 (2.0-8.3) x10*3/uL Absolute Nucleated RBC 0.000 (0.0-0.012) X10*3/uL Nucleated RBC % (auto) 0.0 (0.0-0.2) /100WBC Sodium 139 (135-145) mmol/L Potassium 4.1 (3.3-5.1) mmol/L Chloride 104 (96-108) mmol/L Carbon Dioxide 25 (22-29) mmol/L Anion Gap 14 (12-20) BUN 7 L (9-16) mg/dL Creatinine 0.81 (0.5-1.4) mg/dL Estim Creat Clear Calc 81.6 Estimated GFR > 60 Random Glucose 108 (60-115) mg/dL Calcium 9.1 (8.4-10.2) mg/dL Total Bilirubin 0.4 (0.0-1.0) mg/dL AST 27 (5-31) U/L ALT 25 (0-31) U/L Alkaline Phosphatase 108 (39-117) U/L Troponin I High Sens (<3.5-17.0) ng/L Total Protein 7.5 (6.5-8.0) g/dL Albumin 4.1 (3.5-5.0) g/dL Lipase 8 (8-78) U/L Urine Color Yellow Urine Appearance Clear Urine pH 7.5 (5.0-9.0) Ur Specific [place] 1.015 (1.005-1.025) Urine Protein Negative (Neg-Trace) mg/dL Urine Glucose (UA) Negative (Negative) mg/dL Urine Ketones Negative (Negative) mg/dL Urine Blood Negative (Negative) Urine Nitrite Negative (Negative) Ur Leukocyte Esterase Negative (Negative) Urine Test (NEGATIVE) COVID-19 ([facility]HRA) (Negative) COVID-19 Clin Com Influenza Type A (AYDEN) (Negative) Influenza Type B (AYDEN) (Negative) Influenza A & B Note Blood Type Antibody Screen 11/22/22 11/22/22 11/22/22 Range/Units 17:01 17:01 17:01 WBC (4.8-10.8) X10*3/uL RBC (4.20-5.50) X10*6/uL Hgb (12.0-16.0) g/dl Hct (37.0-47.0) % MCV (80.0-98.0) fL MCH (27.0-33.0) pg MCHC (31.0-35.0) g/dl RDW (11.0-16.0) % Plt Count (160-400) X10*3/uL MPV (9.4-12.3) fL Immature Gran % (Auto) (0.0-0.4) % Neut % (Auto) (45-73) % Lymph % (Auto) (20-40) % Saunders % (Auto) (2-11) % Eos % (Auto) (0-4) % Baso % (Auto) (0-2) % Lymph # (Auto) (1.2-4.9) X10*3/uL Saunders # (Auto) (0.1-1.2) X10*3/uL Eos # (Auto) (0.0-0.4) X10*3/uL Baso # (Auto) (0.0-0.2) X10*3/uL Abs Immat Gran (auto) (0.00-0.03) X10*3/uL Absolute Neuts (auto) (2.0-8.3) x10*3/uL Absolute Nucleated RBC (0.0-0.012) X10*3/uL Nucleated RBC % (auto) (0.0-0.2) /100WBC Sodium (135-145) mmol/L Potassium (3.3-5.1) mmol/L Chloride (96-108) mmol/L Carbon Dioxide (22-29) mmol/L Anion Gap (12-20) BUN (9-16) mg/dL Creatinine (0.5-1.4) mg/dL Estim Creat Clear Calc Estimated GFR Random Glucose (60-115) mg/dL Calcium (8.4-10.2) mg/dL Total Bilirubin (0.0-1.0) mg/dL AST (5-31) U/L ALT (0-31) U/L Alkaline Phosphatase (39-117) U/L Troponin I High Sens < 3.5 (<3.5-17.0) ng/L Total Protein (6.5-8.0) g/dL Albumin (3.5-5.0) g/dL Lipase (8-78) U/L Urine Color Urine Appearance Urine pH (5.0-9.0) Ur Specific [place] (1.005-1.025) Urine Protein (Neg-Trace) mg/dL Urine Glucose (UA) (Negative) mg/dL Urine Ketones (Negative) mg/dL Urine Blood (Negative) Urine Nitrite (Negative) Ur Leukocyte Esterase (Negative) Urine Test NEGATIVE (NEGATIVE) COVID-19 ([facility]RA) (Negative) COVID-19 Clin Com Influenza Type A (AYDEN) (Negative) Influenza Type B (AYDEN) (Negative) Influenza A & B Note Blood Type O Positive Antibody Screen NEGATIVE 11/22/22 11/22/22 Range/Units 17:03 17:03 WBC (4.8-10.8) X10*3/uL RBC (4.20-5.50) X10*6/uL Hgb (12.0-16.0) g/dl Hct (37.0-47.0) % MCV (80.0-98.0) fL MCH (27.0-33.0) pg MCHC (31.0-35.0) g/dl RDW (11.0-16.0) % Plt Count (160-400) X10*3/uL MPV (9.4-12.3) fL Immature Gran % (Auto) (0.0-0.4) % Neut % (Auto) (45-73) % Lymph % (Auto) (20-40) % Saunders % (Auto) (2-11) % Eos % (Auto) (0-4) % Baso % (Auto) (0-2) % Lymph # (Auto) (1.2-4.9) X10*3/uL Saunders # (Auto) (0.1-1.2) X10*3/uL Eos # (Auto) (0.0-0.4) X10*3/uL Baso # (Auto) (0.0-0.2) X10*3/uL Abs Immat Gran (auto) (0.00-0.03) X10*3/uL Absolute Neuts (auto) (2.0-8.3) x10*3/uL Absolute Nucleated RBC (0.0-0.012) X10*3/uL Nucleated RBC % (auto) (0.0-0.2) /100WBC Sodium (135-145) mmol/L Potassium (3.3-5.1) mmol/L Chloride (96-108) mmol/L Carbon Dioxide (22-29) mmol/L Anion Gap (12-20) BUN (9-16) mg/dL Creatinine (0.5-1.4) mg/dL Estim Creat Clear Calc Estimated GFR Random Glucose (60-115) mg/dL Calcium (8.4-10.2) mg/dL Total Bilirubin (0.0-1.0) mg/dL AST (5-31) U/L ALT (0-31) U/L Alkaline Phosphatase (39-117) U/L Troponin I High Sens (<3.5-17.0) ng/L Total Protein (6.5-8.0) g/dL Albumin (3.5-5.0) g/dL Lipase (8-78) U/L Urine Color Urine Appearance Urine pH (5.0-9.0) Ur Specific [place] (1.005-1.025) Urine Protein (Neg-Trace) mg/dL Urine Glucose (UA) (Negative) mg/dL Urine Ketones (Negative) mg/dL Urine Blood (Negative) Urine Nitrite (Negative) Ur Leukocyte Esterase (Negative) Urine Test (NEGATIVE) COVID-19 ([facility]) Positive A (Negative) COVID-19 Clin Com See Note Influenza Type A ([facility]DEN) Negative (Negative) Influenza Type B (AYDEN) Negative (Negative) Influenza A & B Note See Note Blood Type Antibody Screen <PUJA Weber - Last Filed: 11/22/22 23:14> Critical Care Time Critical Care Time Critical Care Time: No <PUJA Weber - Last Filed: 11/22/22 23:14> Discharge Plan Discharge Clinical Impression: COVID-19 <Mariana Miller CNP - Last Filed: 11/22/22 15:55> Patient Disposition: Home, Self-Care <Mariana Miller CNP - Last Filed: 11/22/22 15:55> Instructions: COVID-19 (Coronavirus Disease 2019) (ED) <Mariana Miller CNP - Last Filed: 11/22/22 15:55> Additional Instructions: Take your medications as prescribed. If you were prescribed antibiotics today, it is important that you take your medication to their entirety, do not skip any doses, do not finish them early. Today you tested positive for COVID-19. Take Ibuprofen or Tylenol as needed for fevers or body aches. Quarantine for 5 days and ensure you wear a mask. After 5 days you should wear a mask for 5 days after that. Practice social distancing and good hand hygiene. Drink plenty of fluids. Follow-up with your primary care provider this week. Return to the emergency department with new or worsening symptoms. In case of emergency call 911 You can purchase a pulse oximeter from your local pharmacy or grocery store, and monitor your oxygen saturation if it goes below 94% you should return to the emergency department for further evaluation. <Mariana Miller CNP - Last Filed: 11/22/22 15:55> Prescriptions: No Action sulfamethoxazole-trimethoprim [Bactrim DS] 800-160 mg tablet 1 tab PO Q12H 7 Days Qty: 14 0RF amoxicillin-pot clavulanate [Augmentin] 875-125 mg tablet 1 tab PO BID Qty: 14 0RF zklekdrxgl-pgebacwxygnut-gmhs 50-325-40 mg tablet 1 tab PO Q6H PRN (Reason: pain) Qty: 10 0RF fluticasone propionate [Flonase Allergy Relief] 50 mcg/actuation spray,suspension 1 spray intranasal BID Qty: 16 0RF Rx Instructions: administer into each nostril ondansetron 4 mg tablet,disintegrating 4 mg PO Q8H PRN (Reason: nausea and vomiting) Qty: 6 0RF ljooehibay-uasoamebudpxe-lqyk 50-325-40 mg tablet 1 tab PO Q4-6H PRN (Reason: pain) Qty: 10 0RF fluticasone propionate [Flonase Allergy Relief] 50 mcg/actuation spray,suspension 2 spray intranasal DAILY Qty: 16 0RF Rx Instructions: administer into each nostril <Mariana Miller CNP - Last Filed: 11/22/22 15:55> Referrals: [facility] [Primary Care Provider] - 2 days <Mariana Miller CNP - Last Filed: 11/22/22 15:55> Stand Alone Forms: Work/School Release <Mariana Miller CNP - Last Filed: 11/22/22 15:55>
[2022-11-22 15:52] VITALS: BP 112/61; PULSE 93; RESP 16; TEMP 37.2; O2SAT 97; BMI 25.6
[2022-11-22 17:11] LABS: MANUAL DIFF FLAG NO
[2022-11-22 17:16] LABS: Basophils Percent Auto 0.6 % (0-2); Eosinophils Percent Auto 0.2 % (0-4); Hematocrit 39.1 % (37.0-47.0); Hemoglobin 13.4 g/dl (12.0-16.0); Imm Gran Abs Auto 0.01 X10*3/uL (0.00-0.03); Imm Gran Pct Auto 0.2 % (0.0-0.4); Lymphocytes Absolute Auto 0.5 X10*3/uL (1.2-4.9); Lymphocytes Percent Auto 7.9 % (20-40); Mean Corpuscular HGB Conc 34.3 g/dl (31.0-35.0); Mean Corpuscular Hemoglobin 30.3 pg (27.0-33.0); Mean Corpuscular Volume 88.5 fL (80.0-98.0); Mean Platelet Volume 10.1 fL (9.4-12.3); Monocytes Absolute Auto 0.8 X10*3/uL (0.1-1.2); Monocytes Percent Auto 13.1 % (2-11); Neutrophils Absolute Auto 4.9 x10*3/uL (2.0-8.3); Platelet Count 268 X10*3/uL (160-400); Red Blood Count 4.42 X10*6/uL (4.20-5.50); White Blood Count 6.2 X10*3/uL (4.8-10.8)
[2022-11-22 17:17] LABS: Appearance Urine Clear; Color Urine Yellow; Glucose Urine UA Negative (Negative); Leukocyte Esterase Urine Negative (Negative); Nitrite Urine Negative (Negative); PH 7.5 (5.0-9.0); Specific Gravity - Urine 1.015 (1.005-1.025); Urine Blood Negative (Negative); Urine Ketones Negative (Negative); Urine Protein Negative (Neg-Trace)
[2022-11-22 17:23] LABS: UPreg QC Valid YES; Urine Pregnancy NEGATIVE (NEGATIVE)
[2022-11-22 17:28] LABS: COVID-19 Test Positive (Negative); IDNOW Serial# 16C4AD1C
[2022-11-22 17:32] LABS: Alanine Aminotransferase 25 U/L (0-31); Albumin Level 4.1 g/dL (3.5-5.0); Alkaline Phosphatase 108 U/L (39-117); Anion Gap 14 (12-20); Aspartate Amino Transferase 27 U/L (5-31); Bilirubin Total 0.4 mg/dL (0.0-1.0); Blood Urea Nitrogen 7 mg/dL (9-16); Calcium 9.1 mg/dL (8.4-10.2); Carbon Dioxide 25 mmol/L (22-29); Chloride 104 mmol/L (96-108); Creatinine Clr Calc Pharmacy 81.6; Estimated Glomerular Filt Rate > 60; Glucose Random 108 mg/dL (60-115); Lipase 8 U/L (8-78); Potassium 4.1 mmol/L (3.3-5.1); Sodium 139 mmol/L (135-145); Total Protein 7.5 g/dL (6.5-8.0)
[2022-11-22 17:40] LABS: IDNOW Serial# BCCEAD1C; Influenza A Negative (Negative); Influenza B2 Negative (Negative)
[2022-11-22 20:23] VITALS: BP 106/74; PULSE 68; RESP 17; TEMP 37.4; O2SAT 99
[2022-11-22 20:51] LABS: Troponin-I High Sensitivity < 3.5 ng/L (<3.5-17.0)
[2022-11-22] MEDS: iohexoL 350 MG/ML 100 ML INFUS..BTL IV (21:31)
--- NOTE | 2022-11-22 21:58 | ECG_ITS ---
Test Reason : chest pain Blood Pressure : / mmHG Vent. Rate : 075 BPM Atrial Rate : 075 BPM P-R Int : 126 ms QRS Dur : 082 ms QT Int : 350 ms P-R-T Axes : 079 061 034 degrees QTc Int : 390 ms Normal sinus rhythm Possible Left atrial enlargement Borderline ECG When compared with ECG of 23-AUG-2021 00:30, No significant change was found Referred By: Kinga Mathur Electronically Signed By:LEXIS BEGUM MD
[2022-11-22] MEDS: Ketorolac Tromethamine 15 MG/ML VIAL 30 MG IM (22:22)
== END 2022-11-22 23:28 | disposition home or self-care (01) ==
PROVIDERS: Nurse Practitioner Family; Physician Assistant; Emergency Provider Emergency Medicine
DX: U07.1 COVID-19 (principal); R10.9 Unspecified abdominal pain; R07.89 Other chest pain; R50.9 Fever, unspecified; R05.9 Cough, unspecified; Z79.899 Other long term (current) drug therapy
CPT/HCPCS: 74177; 80053; 81003; 81025; 83690; 84484; 85025; 86850; 86900; 86901; 87502; 87635; 93005; 96372; 99284; J1885; Q9967

== ENCOUNTER 2023-05-22 22:00 | Emergency (ER) | payer MEDICAID, SELFPAY ==
--- NOTE | ~2023-05-22 | US_ITS ---
EXAMINATION: US SOFT TISSUE NECK CLINICAL INFORMATION: Right lateral clavicular soft tissue mass COMPARISON: None available. TECHNIQUE: Ultrasound of the region of clinical concern in the right supraclavicular region is performed with high- frequency patterson-scale imaging and color Doppler. FINDINGS: There is an ovoid structure in the subcutaneous right supraclavicular region measuring 2.7 x 4.2 x 1.0 cm. Internal echogenicity is slightly heterogeneous, including some curvilinear echogenic densities. No significant vascularity is seen with color Doppler imaging. US/US soft tiss head and/or neck IMPRESSION: Ovoid structure in the right supraclavicular region measuring up to 4.2 cm, which may represent a lipoma; MRI may provide more definitive evaluation.
[2023-05-22 22:12] VITALS: BP 132/90; PULSE 95; RESP 16; TEMP 37; O2SAT 100; BMI 23.9
--- NOTE | 2023-05-22 22:17 | ECG_ITS ---
Test Reason : CP Blood Pressure : / mmHG Vent. Rate : 090 BPM Atrial Rate : 090 BPM P-R Int : 132 ms QRS Dur : 078 ms QT Int : 352 ms P-R-T Axes : 076 063 032 degrees QTc Int : 430 ms Normal sinus rhythm Possible Left atrial enlargement Borderline ECG When compared with ECG of 22-NOV-2022 22:04, No significant change was found Referred By: Generic ED Physician Electronically Signed By:Josue Clement
[2023-05-22 22:54] LABS: Anion Gap 11 (12-20); Blood Urea Nitrogen 6 mg/dL (9-16); Carbon Dioxide 26 mmol/L (22-29); Chloride 102 mmol/L (96-108); Creatinine Clr Calc Pharmacy 92.3; Estimated Glomerular Filt Rate > 60; Glucose Random 110 mg/dL (60-115); Potassium 3.6 mmol/L (3.3-5.1); Sodium 135 mmol/L (135-145)
[2023-05-22 23:00] LABS: B Type Natriuretic Peptide 24 pg/mL (<100)
[2023-05-22 23:04] LABS: Troponin-I High Sensitivity < 2.7 ng/L (<3.5-17.0)
--- NOTE | 2023-05-22 23:34 | PC.NURSE ---
Pt comes to ER with a headache that she has said lasted several days. Pt reports pain is 8/10, intermittent. Pt endorses nausea, no vomiting. Pt stated she does have vision changes when the headache is strong. Pt also showed some swelling on the right side of her chest that is painful to the touch. Pt stated this has been there for about 4-5 days.
[2023-05-23] MEDS: Acetaminophen 325 MG TABLET 975 MG PO (00:26)
[2023-05-23] MEDS: Butalb/Acetamin/Caff 50/325/40 TABLET 1 TAB PO (00:27)
[2023-05-23] MEDS: Ketorolac Tromethamine 30 MG/ML VIAL 15 MG IVPUSH (00:27)
--- NOTE | 2023-05-23 01:02 | ED.HA ---
HPI - Headache General Chief Complaint: Headache Stated Complaint: right side chest swollen,nausea Time Seen by Provider: 05/22/23 23:42 Source: patient Mode of arrival: ambulatory History of Present Illness HPI Narrative: 38-year-old female who presents with daily use of cocaine and also has complaints of unilateral headaches for over a year but has also had a history of migraines but many years ago. Patient states that this evening she also had some associated chest pain that is completely resolved at the time of my interview. In addition, patient reports enlarging soft tissue mass at the right lateral aspect of her clavicle and denies any traumatic injuries associated with this. She denies any night sweats or unexplained weight loss. Related Data Previous Rx's Medication Instructions Recorded amoxicillin 875 mg-potassium 1 tab PO BID #14 tabs 03/30/21 clavulanate 125 mg tablet (Augmentin) adssnpfymk-tkyqwlzrkuvpv-asozxdhr 1 tab PO Q6H PRN pain #10 tabs 03/30/21 50 mg-325 mg-40 mg tablet fluticasone propionate 50 1 spray intranasal BID #16 grams 03/30/21 mcg/actuation nasal spray,suspension (Flonase Allergy Relief) ondansetron 4 mg disintegrating 4 mg PO Q8H PRN nausea and 03/30/21 tablet vomiting #6 tabs sulfamethoxazole 800 1 tab PO Q12H 7 days #14 tabs 04/03/21 mg-trimethoprim 160 mg tablet (Bactrim DS) aeuegpxijp-voaseqcdnbilp-hsfexhkv 1 tab PO Q4-6H PRN pain #10 tabs 08/23/21 50 mg-325 mg-40 mg tablet fluticasone propionate 50 2 spray intranasal DAILY #16 grams 08/23/21 mcg/actuation nasal spray,suspension (Flonase Allergy Relief) Allergies Allergy/AdvReac Type Severity Reaction Status Date / Time No Known Allergies Allergy Verified 04/03/21 01:54 Review of Systems Review of Systems: Pertinent positives and negatives as stated in HPI PMFSH Past Medical History Source: nursing notes reviewed Medical History Migraines Social History Social History Alcohol intake: never Smoked in Last 30 Days: Yes Use of substances other than those prescribed or required for medical reasons: Yes Substance Use Type: Crack/Cocaine Substance Use Frequency: Daily Advance Directives: No Advance Directives Information Provided: Yes Patient : No Physical Exam Vital Signs: Vital Signs: Last Vital Signs Temp 98.6 F 05/22/23 22:12 Pulse 95 05/22/23 22:12 Resp 16 05/22/23 22:12 BP 132/90 H 05/22/23 22:12 Pulse Ox 100 05/22/23 22:12 O2 Del Method Room Air 05/22/23 22:12 BMI result Body Mass Index 23.9 VITAL SIGNS: Reviewed. GENERAL: Well developed, well nourished, in no acute distress. HEAD: Normocephalic/atraumatic EYES: PERRLA, EOMI EARS: Ext canals without abnormality NOSE: Nares patent bilateral OROPHARYNX: no oral lesions noted, posterior pharynx clear NECK: Supple, no adenopathy LUNGS: Normal breath sounds. No adventitious sounds or accessory muscle use. SpO2<100> CARDIOVASCULAR: Regular rate and rhythm without noted murmurs ABDOMEN: Soft, non-tender, non-distended with bowel sounds. MUSCULOSKELETAL: No tenderness, deformities, or effusions noted on gross inspection. EXTREMITIES: No cyanosis, clubbing or edema. RIGHT shoulder: There is obvious 4.5 cm ovoid soft tissue mass at the anterolateral aspect of the right clavicle with a areas of firmness around the outer border, appears to inhibit patient's ABduction and flexion at the shoulder SKIN: Inspection of the skin reveals no rashes NEUROLOGIC: Alert and oriented x 4. Strength and sensation to light touch were grossly intact x 4, cranial nerves 2-12 are grossly intact. Medications Administered Discontinued Medications Generic Name Dose Route Start Last Admin Trade Name Luis Eq PRN Reason Stop Dose Admin Acetaminophen 975 mg 05/23/23 00:08 05/23/23 00:26 Acetaminophen 325 Mg Tablet PO 05/23/23 00:09 975 mg ONCE ONE Administration Acetaminophen/Butalbital/Caffeine 1 tab 05/23/23 00:08 05/23/23 00:27 Butalb/Acetamin/Caff 50/325/40 Tablet PO 05/23/23 00:09 1 tab ONCE ONE Administration Ketorolac Tromethamine 15 mg 05/23/23 00:08 05/23/23 00:27 Ketorolac Tromethamine 30 Mg/Ml Vial IVPUSH 05/23/23 00:09 15 mg ONCE ONE Administration Medical Decision Making Medical Decision Making MDM Narrative: 38-year-old female with suspected headache and chest pain associated with lifestyle choices of daily cocaine use. She is otherwise nonfocal. At the time of my interview patient has been given Tylenol, Toradol, Fioricet and her symptoms have completely resolved. On clinical evaluation of the soft tissue mass it is not midline so I do not think that this is a supraclavicular lymph node, there is no evidence of Sally's or Tanner's symptoms and as patient has no B symptoms low clinical suspicion for any lymphoma. I reviewed all in investigations, chemistries are grossly normal within undetectable troponin level which corresponds to no acute changes on EKG. Will proceed with ultrasound of the soft tissue mass. Signed out to Dr Duron to f/u US results. Differential Diagnosis Tension headache migraine headache ACS Admission/Observation Consideration of admission/observation: Escalation of care including admission/observation considered Lab Data Please see the discussion above 05/22/23 22:29 Labs: Lab Results 05/22/23 05/22/23 05/22/23 Range/Units 22:29 22:29 22:29 Sodium 135 (135-145) mmol/L Potassium 3.6 (3.3-5.1) mmol/L Chloride 102 (96-108) mmol/L Carbon Dioxide 26 (22-29) mmol/L Anion Gap 11 L (12-20) BUN 6 L (9-16) mg/dL Creatinine 0.67 (0.5-1.4) mg/dL Estim Creat Clear Calc 92.3 Estimated GFR > 60 Random Glucose 110 (60-115) mg/dL Calcium 9.0 (8.4-10.2) mg/dL Troponin I High Sens < 2.7 (<3.5-17.0) ng/L B-Natriuretic Peptide 24 (<100) pg/mL Independent Interpretation I performed an independent interpretation of an: EKG Interpretation: Normal sinus rhythm, HR-90, no STEMI, IL/QRS/QTC is within normal limits. Discharge Plan Discharge Clinical Impression: Headache, Cocaine use, Atypical chest pain, Mass of soft tissue of chest Patient Disposition: Home, Self-Care Instructions: General Headache (ED), Cocaine Abuse (ED), Soft Tissue Mass (ED) Additional Instructions: Return to the ER for any worsening symptoms. Prescriptions: No Action sulfamethoxazole-trimethoprim [Bactrim DS] 800-160 mg tablet 1 tab PO Q12H 7 Days Qty: 14 0RF amoxicillin-pot clavulanate [Augmentin] 875-125 mg tablet 1 tab PO BID Qty: 14 0RF gjszztyntx-xdaegmovyldww-qnin 50-325-40 mg tablet 1 tab PO Q6H PRN (Reason: pain) Qty: 10 0RF fluticasone propionate [Flonase Allergy Relief] 50 mcg/actuation spray,suspension 1 spray intranasal BID Qty: 16 0RF Rx Instructions: administer into each nostril ondansetron 4 mg tablet,disintegrating 4 mg PO Q8H PRN (Reason: nausea and vomiting) Qty: 6 0RF pbwmydcczk-btvhvrwusqtdc-ulwx 50-325-40 mg tablet 1 tab PO Q4-6H PRN (Reason: pain) Qty: 10 0RF fluticasone propionate [Flonase Allergy Relief] 50 mcg/actuation spray,suspension 2 spray intranasal DAILY Qty: 16 0RF Rx Instructions: administer into each nostril
[2023-05-23 01:07] VITALS: RESP 18
== END 2023-05-23 02:40 | disposition home or self-care (01) ==
PROVIDERS: Emergency Provider Student in an Organized Health Care Education/Training Program
DX: R51.9 Headache, unspecified (principal); F14.10 Cocaine abuse, uncomplicated; R07.89 Other chest pain; R06.02 Shortness of breath; Z79.899 Other long term (current) drug therapy
CPT/HCPCS: 36415; 76536; 80048; 83880; 84484; 93005; 96374; 99284; 99285; J1885

== ENCOUNTER 2023-11-26 12:33 | Emergency (ER) | payer MEDICAID, SELFPAY ==
[2023-11-26 12:48] VITALS: BP 119/82; PULSE 95; RESP 18; TEMP 35.8; O2SAT 99; BMI 28.2
--- NOTE | 2023-11-26 12:48 | ED.SKABFB ---
HPI - Skin/Abscess/Foreign Bdy General Chief complaint: Skin/Abscess/Foreign Body Stated complaint: Lump ? Abscess on R Shoulder Time Seen by Provider: 11/26/23 14:41 Source: patient Mode of arrival: ambulatory Limitations: no limitations History of Present Illness HPI narrative: 38-year-old female presents with a lump to her right shoulder/clavicle region has been present for months, reports that the bump is squishy, it moves, and sometimes bothers her she would like a bump to be removed. No overlying skin changes to the mom she states. Denies fevers, chills, chest pain, shortness of breath , nausea, vomiting, abdominal pain at this time Related Data Previous Rx's Medication Instructions Recorded amoxicillin 875 mg-potassium 1 tab PO BID #14 tabs 03/30/21 clavulanate 125 mg tablet (Augmentin) vjsfxchtol-yquzmduhywnjo-skrymfek 1 tab PO Q6H PRN pain #10 tabs 03/30/21 50 mg-325 mg-40 mg tablet fluticasone propionate 50 1 spray intranasal BID #16 grams 03/30/21 mcg/actuation nasal spray,suspension (Flonase Allergy Relief) ondansetron 4 mg disintegrating 4 mg PO Q8H PRN nausea and 03/30/21 tablet vomiting #6 tabs sulfamethoxazole 800 1 tab PO Q12H 7 days #14 tabs 04/03/21 mg-trimethoprim 160 mg tablet (Bactrim DS) iobcadmiwd-hegunzbqugroz-todgggka 1 tab PO Q4-6H PRN pain #10 tabs 08/23/21 50 mg-325 mg-40 mg tablet fluticasone propionate 50 2 spray intranasal DAILY #16 grams 08/23/21 mcg/actuation nasal spray,suspension (Flonase Allergy Relief) Allergies Allergy/AdvReac Type Severity Reaction Status Date / Time No Known Allergies Allergy Verified 11/26/23 12:51 Review of Systems Review of Systems: Constitutional : No Weight loss, No Fever, No Chills, No Fatigue, No Malaise ENT/Mouth : No sore throat, No Rhinorrhea Eyes: No Eye Pain, No Swelling, No Redness Cardiovascular : No Chest Pain, No SOB, No Dyspnea on Exertion, No Orthopnea, No Edema, No Palpitations Respiratory : No Cough, No Sputum, No Wheezing Gastrointestinal : No Nausea, No Vomiting, No Diarrhea, No Constipation, No abdominal Pain, No Hematochezia, No Melena Genitourinary : No Dysuria, No Urinary Frequency, No Hematuria, Musculoskeletal : No joint pain, No Myalgias, No Joint Swelling Skin : No Skin Lesions, No rash, + soft tissue mass Neuro : No Weakness, No Numbness, No Dizziness, No Headache All other systems reviewed and are negative Yes all other systems are reviewed and are negative PMFSH Past Medical History Onset Date is defined in the Problem List Problems that require an onset date and time if occurred within 24 hrs of arrival to the ED Aortic Dissection and Rupture; Neurologic impairment; Cardiopulmonary Arrest; Endotracheal Intubation; Insertion or Replacement of Mechanical Circulatory Assist Device Medical History Migraines Social History Social History Alcohol intake: never Substance Use Type: Crack/Cocaine Advance Directives: No Advance Directives Information Provided: No Physical Exam Vital Signs: Vital Signs: Last Vital Signs Temp 96.5 F L 11/26/23 12:48 Pulse 95 11/26/23 12:48 Resp 18 11/26/23 12:48 BP 119/82 11/26/23 12:48 Pulse Ox 99 11/26/23 12:48 O2 Del Method Room Air 11/26/23 12:48 BMI result Body Mass Index 28.2 Course Course Course Narrative: RME: 38 yo F w/no sig PMHx presenting to the ED c/o painful lump to R chest wall x1 mos. growing. +cigarrette smoker, currently homeless. Admits to mild SOB skin colored lump to right infraclavicular region. mildly ttp. no fluctuance or erythema Labs, Chest CT ordered Full HPI, ROS and PE to be performed by primary ED provider. Reevaluation(s) Reevaluation #1: CBC with slight leukocytosis 12.5, no shift, patient appears to have had this in the past this could be her baseline. Unlikely infection. Chemistry unremarkable. Ct pending Time: 15:26 Medical Decision Making Medical Decision Making [facility] Narrative: 1524 38 yo f presents w/ concerns of lump to right shoulder region present for months On exam there is a mobile 3 x 4 cm mass overlying the medial aspect of the clavicle on the right. Nonpainful, no overlying skin changes feels fatty. This is likely a lipoma, unlikely abscess, other differentials include malignancy, soft tissue mass. Plan labs and CT ordered from triage Differential Diagnosis Differential Diagnoses: The differential diagnosis associated with the presentation includes This is likely a lipoma, unlikely abscess, other differentials include malignancy, soft tissue mass. Admission/Observation Consideration of admission/observation: Escalation of care including admission/observation considered [facility] Lab Data [facility] Lab Attestation statement: I reviewed the patient's lab results. 11/26/23 13:44 11/26/23 13:44 Labs: Lab Results 11/26/23 11/26/23 Range/Units 13:38 13:44 WBC 12.5 H (4.8-10.8) X10*3/uL RBC 4.42 (4.20-5.50) X10*6/uL Hgb 13.7 (12.0-16.0) g/dl Hct 39.9 (37.0-47.0) % MCV 90.3 (80.0-98.0) fL MCH 31.0 (27.0-33.0) pg MCHC 34.3 (31.0-35.0) g/dl RDW 12.7 (11.0-16.0) % Plt Count 327 (160-400) X10*3/uL MPV 9.3 L (9.4-12.3) fL Immature Gran % (Auto) 0.4 (0.0-0.4) % Neut % (Auto) 66.5 (45-73) % Lymph % (Auto) 23.9 (20-40) % Addison % (Auto) 7.6 (2-11) % Eos % (Auto) 1.0 (0-4) % Baso % (Auto) 0.6 (0-2) % Lymph # (Auto) 3.0 (1.2-4.9) X10*3/uL Addison # (Auto) 1.0 (0.1-1.2) X10*3/uL Eos # (Auto) 0.1 (0.0-0.4) X10*3/uL Baso # (Auto) 0.1 (0.0-0.2) X10*3/uL Abs Immat Gran (auto) 0.05 H (0.00-0.03) X10*3/uL Absolute Neuts (auto) 8.3 (2.0-8.3) x10*3/uL Absolute Nucleated RBC 0.000 (0.0-0.012) X10*3/uL Nucleated RBC % (auto) 0.0 (0.0-0.2) /100WBC Sodium 139 (135-145) mmol/L Potassium 3.6 (3.3-5.1) mmol/L Chloride 102 (96-108) mmol/L Carbon Dioxide 30 H (22-29) mmol/L Anion Gap 11 L (12-20) BUN 7 L (9-16) mg/dL Creatinine 0.66 (0.5-1.4) mg/dL Estim Creat Clear Calc 103.8 Estimated GFR > 60 Random Glucose 110 (60-115) mg/dL Calcium 9.4 (8.4-10.2) mg/dL Total Bilirubin 0.2 (0.0-1.0) mg/dL Direct Bilirubin 0.2 (0.0-0.5) mg/dL AST 14 (5-31) U/L ALT 9 (0-31) U/L Alkaline Phosphatase 89 (39-117) U/L Total Protein 8.3 H (6.5-8.0) g/dL Albumin 4.0 (3.5-5.0) g/dL Influenza Type A (PCR) NEGATIVE (Negative) Influenza Type B (PCR) NEGATIVE (Negative) RSV RNA Qual (PCR) NEGATIVE (Negative) SARS-CoV-2 RNA (RT-PCR) NEGATIVE (Negative) Independent Interpretation I performed an independent interpretation of an: CT Scan Radiology Impression Discussion of test interpretation with radiology: I have reviewed the radiologist's reading. Discharge Plan Discharge Clinical Impression: Mass of soft tissue Patient Disposition: Home, Self-Care Instructions: Soft Tissue Mass (ED) Additional Instructions: Take your medications as prescribed. If you were prescribed antibiotics today, it is important that you take your medication to their entirety, do not skip any doses, do not finish them early. Follow-up with your primary care provider this week. Return to the emergency department with new or worsening symptoms. Such as fevers, chills, chest pain, shortness of breath, nausea, vomiting, dizziness, headache, vision changes, lethargy In case of emergency call 911 Prescriptions: No Action sulfamethoxazole-trimethoprim [Bactrim DS] 800-160 mg tablet 1 tab PO Q12H 7 Days Qty: 14 0RF amoxicillin-pot clavulanate [Augmentin] 875-125 mg tablet 1 tab PO BID Qty: 14 0RF aflrtibfft-mojrwaqpvjrzm-hjba 50-325-40 mg tablet 1 tab PO Q6H PRN (Reason: pain) Qty: 10 0RF fluticasone propionate [Flonase Allergy Relief] 50 mcg/actuation spray,suspension 1 spray intranasal BID Qty: 16 0RF Rx Instructions: administer into each nostril ondansetron 4 mg tablet,disintegrating 4 mg PO Q8H PRN (Reason: nausea and vomiting) Qty: 6 0RF revhfccbwo-dbvedwhgjifew-pbqd 50-325-40 mg tablet 1 tab PO Q4-6H PRN (Reason: pain) Qty: 10 0RF fluticasone propionate [Flonase Allergy Relief] 50 mcg/actuation spray,suspension 2 spray intranasal DAILY Qty: 16 0RF Rx Instructions: administer into each nostril Referrals: Physician,Unknown J [Primary Care Provider] - 2 days Stand Alone Forms: Work/School Release
--- NOTE | 2023-11-26 16:00 | PC.NURSE ---
patient a&ox3, iv inserted for ct scan, pt awaiting radiology and provider.
[2023-11-26 17:21] VITALS: BP 127/78; PULSE 84; RESP 20; TEMP 36.7; O2SAT 99
--- NOTE | 2023-11-26 17:23 | PC.NURSE ---
patient a&ox3, vss, imaging negative, labs/swab negative, vss, pt to discharge home
== END 2023-11-26 17:24 | disposition home or self-care (01) ==
PROVIDERS: Emergency Provider Emergency Medicine Emergency Medical Services
DX: R22.2 Localized swelling, mass and lump, trunk (principal); G43.909 Migraine, unspecified, not intractable, without status migrainosus; Z20.822 Contact with and (suspected) exposure to COVID-19; Z20.828 Contact with and (suspected) exposure to other viral communicable diseases
CPT/HCPCS: 0241U; 71260; 80048; 80076; 84702; 85025; 86617; 86618; 99284; Q9967

== ENCOUNTER 2024-01-18 03:46 | Emergency (ER) | payer MEDICAID, SELFPAY ==
[2024-01-18 03:52] VITALS: BP 160/90; PULSE 104; RESP 18; TEMP 36.5; O2SAT 95; BMI 28.8
--- NOTE | 2024-01-18 04:48 | PC.NURSE ---
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 Pt initially denies any symptoms, though was presenting with stuffy nose. 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
[2024-01-18 05:12] LABS: COVID-19 Test Negative (Negative); IDNOW Serial# 08D9AD1C; IDNOW Serial# 152EDE1D; Influenza A Negative (Negative); Influenza B2 Negative (Negative)
[2024-01-18 05:36] LABS: HBS Num1 0.44 mIU/mL (0-7.99); HBc Num1 0.13 S/CO (0.00-0.79); Hepatitis B Core Antibody Nonreactive (Nonreactive); ~HepC Num1 0.26 S/CO (0.00-0.79); ~Hepatitis B Surface Antibody NONREACTIVE (Nonreactive); ~Hepatitis C Antibody Nonreactive (Nonreactive)
[2024-01-18 05:37] LABS: HBsAGNum1 0.37 S/CO (0.00-0.99); Hepatitis B Surface Antigen Negative (Negative)
[2024-01-18 06:08] VITALS: BP 146/93; PULSE 83; RESP 16; TEMP 36.7; O2SAT 98
--- NOTE | 2024-01-18 06:09 | MHC.EDTECH ---
Hourly rounds and vitals completed,Patient ambulated to bathroom with a steady gait,urine sample obtained and sent to lab.
[2024-01-18 06:20] LABS: Appearance Urine Clear; Color Urine Yellow; Glucose Urine UA Negative (Negative); Leukocyte Esterase Urine Negative (Negative); Nitrite Urine Negative (Negative); Specific Gravity - Urine 1.025 (1.005-1.025); UMIC TRIGGER UACC YES; Urine Blood Trace (Negative); Urine Ketones Trace mg/dL (Negative); Urine Protein Trace mg/dL (Neg-Trace)
[2024-01-18 06:20] LABS: CT PCR NOT DETECTED (Not Detect.); NG PCR NOT DETECTED (Not Detect.)
[2024-01-18 06:23] LABS: Bacteria Urine None Seen (None Seen); Hyaline Casts Urine 0-2 /LPF (0-2); WBC Urine 0-5 /HPF (0-5)
== END 2024-01-18 06:40 | disposition left against medical advice (07) ==
PROVIDERS: Emergency Provider Emergency Medicine
DX: Z20.5 Contact with and (suspected) exposure to viral hepatitis (principal); Z11.52 Encounter for screening for COVID-19; Z79.899 Other long term (current) drug therapy; Z20.2 Contact with and (suspected) exposure to infections with a predominantly sexual mode of transmission
CPT/HCPCS: 0353U; 36415; 81001; 86704; 86706; 86803; 87340; 87502; 87635; 99283; 99284

== ENCOUNTER 2025-05-30 20:56 | Emergency (ER) | payer MEDICAID, SELFPAY ==
[2025-05-30 21:07] VITALS: BP 137/79; PULSE 101; RESP 16; TEMP 36.9; O2SAT 97; BMI 30.3
[2025-05-30 22:18] LABS: Resp Syncy Virus RNA Qual PCR NEGATIVE (Negative); SARS COV2 PCR INHOUSE NEGATIVE (Negative)
== END 2025-05-31 02:25 | disposition left against medical advice (07) ==
PROVIDERS: Emergency Provider Emergency Medicine
DX: R53.83 Other fatigue (principal); R09.81 Nasal congestion; R22.31 Localized swelling, mass and lump, right upper limb; Z03.818 Encounter for observation for suspected exposure to other biological agents ruled out; Z53.21 Procedure and treatment not carried out due to patient leaving prior to being seen by health care provider
CPT/HCPCS: 87637; 99281

== ENCOUNTER 2025-06-28 11:46 | Outpatient (REF) | payer MEDICAID, SELFPAY ==
--- OUTSIDE RECORDS SUMMARY | 2025-06-28 12:42 | XMS_ITS | Clinical Summary ---
Author Organization [employer] Address [address] [facility] [address]t [place] [address] Care Team Providers Care Power System Electrical Engineer Name Role Phone Unavailable Primary Care Provider Unavailabl e Allergies No known active allergies Medications * This document contains information received from the source organization and may not represent a complete record from that organization. butalbital-aceta minophen-caffein e (Esgic) 50-325-40 MG capsule Take 1 capsule by mouth every 12 (twelve) hours if needed. 03/14/2021 Active Multiple Vitamin (Multivitamin) tabletIndication s:Chronic post-traumatic headache, not intractable TAKE 1 TABLET BY MOUTH DAILY WITH FOOD 90 tablet 12/18/2022 Active venlafaxine XR (Effexor XR) 37.5 MG 24 hr capsuleIndicatio ns:Anxiety TAKE 1 CAPSULE BY MOUTH EVERY DAY WITH FOOD 30 capsule 2 05/14/2023 Active mirtazapine (Remeron) 45 MG tabletIndication s:Anxiety Take 1 tablet (45 mg) by mouth at bedtime. 30 tablet 10/03/2023 Active QUEtiapine (SEROquel) 100 MG tabletIndication s:Anxiety Take 1 tablet (100 mg) by mouth at bedtime. 30 tablet 10/03/2023 Active QUEtiapine (SEROquel) 25 MG tablet Take 1 tablet (25 mg) by mouth in the morning. 30 tablet 10/03/2023 Active QUEtiapine (SEROquel) 50 MG tabletIndication s:Anxiety Take 1 tablet (50 mg) by mouth 2 times daily. 60 tablet 10/03/2023 Active diclofenac (Cataflam) 50 MG tabletIndication s:Chronic right shoulder pain Take 1 tablet (50 mg) by mouth 3 times daily for 14 days. 42 tablet 06/27/2025 07/11/20 25 Active baclofen (Lioresal) 10 MG tabletIndication s:Chronic right shoulder pain Take one tablet TID PRN 30 tablet 06/27/2025 Active Active Problems Problem Noted Date Diagnosed Date Cervical intraepithelial huma plasia grade III with severe dysplasia 10/15/2022 Drug-induced headache, not e lsewhere classified, not intractable 10/15/2022 Generalized anxiety disorder 10/15/2022 Migraine without aura, not refractory 10/15/2022 Opioid dependence with opioid-induced mood disor augie 01/25/2019 Bilateral low back pain without sciatica 015 Chronic post-traumatic headache 08/20/2012 Encounters Date Type Department Care Team Description 06/27/2025 6:20 PM EDT Office Visit [facility] [address] [place] [id number] Caron Walsh NP Swelling of clavicular region (Primary Dx); Chronic right shoulder pain; Multiple acquired skin tags 06/27/2025 Travel from Last 3 Months Immunizations Immunization Administration Dates Next Due Influenza, Split (incl. purified surface antigen ) 08/20/2012 Tdap 08/20/2012 Social History Tobacco Use Types Packs/Day Years Used Date Smoking Tobacco: Never Assessed Comments Unknown Sex and Gender Information Value Date Recorded Sex Assigned at Female 09/23/2022 10:18 AM EDT Legal Sex Female 10:18 AM EDT Gender Identity Female 09/23/2022 10:18 AM EDT Sexual Orientation Choose not to disclose 2021 10:18 AM EDT Last Filed Vital Signs Vital Sign Reading Time Taken Comments Blood Pressure 134/85 06/27/2025 6:32 PM EDT Pulse 94 06/27/2025 6:32 PM EDT Temperature 37.2 C (98.9 F) 06/27/2025 6:32 PM EDT Respiratory Rate 20 06/27/2025 6:32 PM EDT Oxygen Saturation 99% 06/27/2025 6:32 PM EDT Inhaled Oxygen Concentration - - Weight 78.8 kg (173 lb 12.8 oz) 06/27/2025 6:32 PM EDT Height 160 cm (5' 3 ) 01/05/2020 12:02 AM EST Body Mass Index 30.79 01/05/2020 12:02 AM EST Plan of Treatment Health Maintenance Due Date Last Done Comments Depression Screening 1983 HIV Screening 1983 SDOH Screening 1983 Disability Screening 1983 Alcohol/Substance Use Screening 1995 Tobacco Screening 1995 Family Planning (PISQ) 1998 HPV Vaccines (1 - 3-dose series) 1998 Hepatitis C Screening 2001 Hepatitis B Vaccines (1 of 3 - 19+ 3-dose series) 2002 Pap Smear 01/30/2004 Cervical Cancer Screening 2013 HPV/Cotest 2013 DTaP/Tdap/Td Vaccines (2 - T d or Tdap) 08/20/2022 08/20/2012 Mammogram 2023 01/15/2017 COVID-19 Vaccine ( - 2023-2 5 season) 2024 Influenza Vaccine (#1) 2025 08/20/2012 Zoster Vaccines (1 of 2) 2033 RSV Patients and Pa tients Aged 60 years or older (1 - 1-dose 75+ series) 2058 HIB Vaccines Aged Out No longer eligi ble based on patient's age to complete this topic Hepatitis A Vaccines Aged Out No long er eligible based on patient's age to complete this topic IPV Vaccines Aged Out No longer eligi ble based on patient's age to complete this topic Meningococcal B Vaccine Aged Out No l onger eligible based on patient's age to complete this topic Meningococcal Vaccine Aged Out No teodoro hieu eligible based on patient's age to complete this topic Pneumococcal Vaccine: Pediat rics (0 to 5 Years) and At-Risk Patients (6 to 49) Years Aged Out No longer eligi ble based on patient's age to complete this topic RSV under 20 months Aged Out No longe r eligible based on patient's age to complete this topic Rotavirus Vaccines Aged Out No longer eligible based on patient's age to complete this topic Procedures Procedure Name Priority Date/Time Associated Diagnosis Comments HM MAMMOGRAPHY Routine 01/15/2017 from Last 3 Months or Most Recently Relevant to Health Maintenance Results * Mammography (01/15/2017) Mammogram performed Anatomical Region Laterality Modality Other [facility] Provider MD HEALTH MAINTENANCE Final Result from Last 3 Months or Most Recently Relevant to Health Maintenance Insurance [facility] C3 HSN FULL
[2025-06-28 13:59] LABS: Anion Gap 10 (12-20); Blood Urea Nitrogen 5 mg/dL (9-16); Calcium 9.0 mg/dL (8.4-10.2); Carbon Dioxide 30 mmol/L (22-29); Chloride 104 mmol/L (96-108); Estimated Glomerular Filt Rate > 60; Potassium 4.4 mmol/L (3.3-5.1); Sodium 140 mmol/L (135-145)
== END 2025-06-28 11:47 | disposition home or self-care (01) ==
LOC: HO.HHCL 11:46
PROVIDERS: PCP Nurse Practitioner; Visit Provider Nurse Practitioner
DX: M25.511 Pain in right shoulder (principal); G89.29 Other chronic pain
CPT/HCPCS: 36415; 80048

== ENCOUNTER 2025-08-11 15:32 | Outpatient (REF) | payer MEDICAID, SELFPAY ==
--- NOTE | ~2025-08-11 | US_ITS ---
EXAMINATION: US CHEST CLINICAL INFORMATION: Swelling/mass right clavicular region COMPARISON: None available. TECHNIQUE: Grayscale and color Doppler imaging was performed to evaluate the soft tissues in the right supraclavicular region FINDINGS: There is a circumscribed mass that is nearly isoechoic to subcutaneous adipose tissue. It measures 6.7 x 2.3 x 5.4 cm CC by AP by transverse. On color Doppler, minimal internal blood flow is demonstrated. US/US chest IMPRESSION: There is a solid right supraclavicular mass in the subcutaneous soft tissues measuring 6.7 x 2.3 x 5.4 cm's. If further characterization is indicated, follow-up with MRI. Electronically signed by: Felipe Ozuna MD 08/11/2025 05:00 PM EDT
--- OUTSIDE RECORDS SUMMARY | 2025-08-11 16:53 | XMS_ITS | Encounter Summary ---
Author Organization [employer] Address [address] [facility] 7[address] [place] [address] Care Team Providers Care Dance Studio Manager Name Role Phone Sri Duval MD Primary Care Provider + Encounter Details Date Type Department Care Team ([facility] st Contact Info) Description 08/28/2023 Telephone [facility] [address] [place] [address] Sri Duval MD [address] [place] [address] Social History Tobacco Use Types Packs/Day Years Used Date Smoking Tobacco: Never Assessed Comments Unknown Sex and Gender Information Value Date Recorded Sex Assigned at Female 09/23/2022 10:18 AM EDT Legal Sex Female 10:18 AM EDT Gender Identity Female 09/23/2022 10:18 AM EDT Sexual Orientation Choose not to disclose 2021 10:18 AM EDT documented as of this encounter Plan of Treatment Not on file documented as of this encounter Visit Diagnoses Not on filedocumented in this encounter Care Teams Dance Studio Manager Relationship Specialty Start Date End Date Sri Duval MD [address] [place], [place] [phone] PCP - General Family Medicine 07/30/19 12/31/23 documented as of this encounter
--- OUTSIDE RECORDS SUMMARY | 2025-08-11 16:53 | XMS_ITS | Clinical Summary ---
Author Organization [employer] Address [address] [facility] 7[address] [place] [address] Care Team Providers Care Manager Of Drilling Name Role Phone Unavailable Primary Care Provider [...] 2 times daily. 60 tablet 10/03/2023 Active baclofen (Lioresal) 10 MG tabletIndication s:Chronic [...] Description 06/27/2025 6:20 PM EDT Office Visit [facility] [address] [place] [id number] Caron Walsh NP Swelling of clavicular region [...] COVID-19 Vaccine ( - 2023-2 5 season) 2025 Influenza Vaccine (#1) 2025 08/20/2012 Zoster Vaccines [...] Procedure Name Priority Date/Time Associated Diagnosis Comments BASIC METABOLIC PANEL Routine 06/28/2025 11:57 AM EDT Chronic right shoulder pain HM MAMMOGRAPHY Routine 01/15/2017 from Last 3 Months or Most Recently Relevant to Health Maintenance Results * (ABNORMAL) Basic Metabolic Panel (06/28/2025 11:57 AM EDT) Sodium 140 135 - 145 mmol/L [facility] Potassium 4.4 3.3 - 5.1 mmol/L [facility] Chloride 104 96 - 108 mmol/L [facility] Carbon Dioxide 30(H) 22 - 29 mmol/L [facility] Anion Gap 10(L) 12 - 20 [facility] Urea Nitrogen (BUN) 5(L) 9 - 16 mg/dL [facility] Creatinine, Serum 0.71 0.5 - 1.4 mg/dL [facility] Estimated Glomerular Filt Rate >60 [facility] Comment:Chronic Kidney Disea se: Estimated GFR < 60 mL/min/1.87r3Deqnvn Kidney Disease: Estimated GFR < 15 mL/min/1.73m2 Glucose 99 60 - 115 mg/dL [facility] Calcium 9.0 8.4 - 10.2 mg/dL [facility] Blood Venous blood specimen / Unknown 06/28/2025 11:57 AM EDT 06/28/2025 1:29 PM EDT Caron Walsh NP LAB BLOOD ORDERABLES Final Resu lt Performing Organization Address City/State/[facility] Co de Phone Number [facility] [address] [place] [address] [phone] * Mammography (01/15/2017) Mammogram performed Anatomical Region Laterality Modality Other Historical Provider HEALTH MAINTENANCE Final Result from Last 3 Months or Most Recently Relevant to Health Maintenance Insurance [facility] C3 HSN FULL
--- OUTSIDE RECORDS SUMMARY | 2025-08-11 16:53 | XMS_ITS | Encounter Summary ---
Author Organization [email or web address] Address [address] [facility] [address] [place] [address] Care Team Providers Care Transition Coach Name Role Phone Sri Duval MD Primary Care Provider + Encounter Details Date Type Department Care Team (Late st Contact Info) Description 10/21/2022 Abstract [facility] [address] [place] [address] Provider, MD Karen Social History Tobacco Use Types Packs/Day Years [...] on filedocumented in this encounter Care Teams Transition Coach Relationship Specialty Start Date End Date Sri Duval MD [address] [place] [address] PCP - General Family Medicine 07/30/19 12/31/23 documented as of this encounter
== END 2025-08-11 15:33 | disposition home or self-care (01) ==
LOC: HO.US 15:32
PROVIDERS: Visit Provider Nurse Practitioner
DX: M79.89 Other specified soft tissue disorders (principal); R22.31 Localized swelling, mass and lump, right upper limb
CPT/HCPCS: 76604

== ENCOUNTER → 2025-08-11 15:34 | Outpatient (BNV) | payer MEDICAID, SELFPAY | PROVIDERS: Visit Provider Radiology Diagnostic Radiology | DX: R22.1 Localized swelling, mass and lump, neck (principal) | CPT/HCPCS: 76604 ==

== ENCOUNTER 2025-08-14 19:45 | Emergency (ER) | payer MEDICAID, SELFPAY ==
[2025-08-14 20:05] VITALS: BP 123/79; PULSE 96; RESP 16; TEMP 36.8; O2SAT 99; BMI 31.4
--- NOTE | 2025-08-14 20:05 | ED_ITS ---
HPI - General Adult General Chief complaint: GI Bleed Stated complaint: blood in stool Time Seen by Provider: 08/14/25 23:48 Source: patient Mode of arrival: ambulatory Limitations: no limitations History of Present Illness ED Provider: Dr. Gabbi Barber HPI narrative: Is 40-year-old female with history of chronic constipation presenting with bright red blood per rectum with constipation and bowel movements over the last couple of weeks. Describes a longstanding history of constipation. She occasionally takes laxatives at home. Describes bright red blood in the toilet at times. No melanotic stools. No reported urinary complaints, vaginal bleeding or discharge. No reported fever. Has been feeling well otherwise. Denies chest pain or shortness of breath with exertion. Denies abdominal pain. Denies pain in the rectum. Related Data Previous Rx's ?Medication ?Instructions ?Recorded amoxicillin 875 mg-potassium 1 tab PO BID #14 tabs 06/13 clavulanate 125 mg tablet (Augmentin) lwjsaheyzh-biwzrhbjauafi-dwspulou 1 tab PO Q6H PRN jaden n #10 tabs 03/30/21 50 mg-325 mg-40 mg tablet fluticasone propionate 50 1 spray intranasal BID #16 g dann 03/30/21 mcg/actuation nasal spray,suspension (Flonase Allergy Relief) ondansetron 4 mg disintegrating 4 mg PO Q8H PRN nausea and 03/30/21 tablet vomiting #6 tabs sulfamethoxazole 800 1 tab PO Q12H 7 days #14 tab s 04/03/21 mg-trimethoprim 160 mg tablet (Bactrim DS) dcrrhijoma-fybzvpmoznqqe-amrfpnlv 1 tab PO Q4-6H PRN p ain #10 tabs 08/23/21 50 mg-325 mg-40 mg tablet fluticasone propionate 50 2 spray intranasal DAILY #16 grams 08/23/21 mcg/actuation nasal spray,suspension (Flonase Allergy Relief) Allergies Allergy/AdvReac Type Severity Reaction Status Date / Time No Known Allergies Allergy Verified 08/14/25 20:08 Review of Systems 2 Review of Systems: as per HPI, full review of systems performed and negative but for the above mentioned pertinent positives and negatives. PMFSH Past Medical History Medical History Migraines Social History Social History Alcohol intake: never Substance Use Type: Crack/Cocaine and Marijuana Advance Directives: No Advance Directives Information Provided: No Do you have a plan to hurt others: No Plan Physical Exam ED Exam Exam: GENERAL: Well-Appearing, conversant, no acute distress. SKIN: Normal skin color for ethnicity, warm, dry, no rashes noted. HEENT:? Normocephalic, atraumatic, no stridor, posterior oropharynx nonerythematous, dentition intact, EOMI. NECK: Soft, supple, full ROM, midline structures nontender, no step-offs, no deformities, no lymphadenopathy. CHEST: Heart regular rate and rhythm, no murmurs, symmetric chest rise and fall. PULMONARY: Clear to auscultation bilaterally, no labored breathing, no wheezes/rhales/rhonchi. ABDOMINAL: Soft, nondistended, nontender, positive bowel sounds in all quadrants. : Deferred. MUSCULOSKELETAL: Normal tone, full range of motion, no deformities, no peripheral edema. NEURO: Alert and oriented x3, CN II through XII intact, equal strength and sensation bilateral upper and lower extremities, no focal neurologic deficits.? PSYCHIATRIC: Normal affect, fluid speech, good eye contact and appropriate demeanor. Vital Signs: Vital Signs - 24 hr 08/14/25 20:05 Temperature 98.2 F Pulse Rate 96 Respiratory Rate 16 Blood Pressure 123/79 Pulse Oximetry 99 BMI result Body Mass Index 31.4 Course Course Course Narrative: This is a rapid medical exam performed by Ralph Lizama NP: Additional HPI, ROS, PE not included below will be deferred to primary provider. Patient is a 40-year-old female presenting to the ED with complaint of bright red rectal bleeding with bowel movements for the past 2 weeks. Also complains of pain and constipation. Area not visualized in triage due to privacy concerns. Plan: labs Medical Decision Making Medical Decision Making MDM Narrative: Patient presents today with a chief complaint of possible GI bleed. Differential diagnosis includes rectal bleeding from sources such as a fissure, hemorrhoid, lower GI bleed, diverticulitis, upper GI bleeding, peptic ulcer disease, perforation, esophageal bleed, among many others. Broad-based work-up was initiated based on the patient's presentation. Workup today has been reassuring. There is no anemia or elevation in the white blood cell count to suggest infection. Kidney function is normal. Electrolytes normal. We had an extensive discussion regarding fiber additives in her diet as well as importance of hydration. She is refusing an enema here in the emergency department. She has laxatives at home and does not want additional prescriptions. Discussed importance of follow-up as well as strict return precautions. Discharged home in stable condition. Differential Diagnosis Differential Diagnoses: The differential diagnosis associated with the presentation includes (as above) Admission/Observation Consideration of admission/observation: Escalation of care including admission/observation considered Lab Data MDM Lab Attestation statement: I reviewed the patient's lab results. 08/14/25 20:19 08/14/25 20:19 Labs: Lab Results 08/14/25 Range/Units 20:19 WBC 9.0 (4.8-10.8) X10*3/uL RBC 4.53 (4.20-5.50) X10*6/uL Hgb 13.6 (12.0-16.0) g/dl Hct 40.2 (37.0-47.0) % MCV 88.7 (80.0-98.0) fL MCH 30.0 (27.0-33.0) pg MCHC 33.8 (31.0-35.0) g/dl RDW 12.7 (11.0-16.0) % Plt Count 285 (160-400) X10*3/uL MPV 9.6 (9.4-12.3) fL Immature Gran % (Auto) 0.2 (0.0-0.4) % Neut % (Auto) 56.6 (45-73) % Lymph % (Auto) 32.3 (20-40) % Mellette % (Auto) 8.1 (2-11) % Eos % (Auto) 2.1 (0-4) % Baso % (Auto) 0.7 (0-2) % Lymph # (Auto) 2.9 (1.2-4.9) X10*3/uL Mellette # (Auto) 0.7 (0.1-1.2) X10*3/uL Eos # (Auto) 0.2 (0.0-0.4) X10*3/uL Baso # (Auto) 0.1 (0.0-0.2) X10*3/uL Abs Immat Gran (auto) 0.02 (0.00-0.03) X10*3/uL Absolute Neuts (auto) 5.1 (2.0-8.3) x10*3/uL Absolute Nucleated RBC 0.000 (0.0-0.012) X10*3/uL Nucleated RBC % (auto) 0.0 (0.0-0.2) /100WBC Sodium 139 (135-145) mmol/L Potassium 4.1 (3.3-5.1) mmol/L Chloride 102 (96-108) mmol/L Carbon Dioxide 30 H (22-29) mmol/L Anion Gap 11 L (12-20) BUN 5 L (9-16) mg/dL Creatinine 0.67 (0.5-1.4) mg/dL Estim Creat Clear Calc 105.6 Estimated GFR > 60 Random Glucose 106 (60-115) mg/dL Calcium 9.1 (8.4-10.2) mg/dL Total Bilirubin 0.1 (0.0-1.0) mg/dL AST 21 (5-31) U/L ALT 10 (0-31) U/L Alkaline Phosphatase 107 (39-117) U/L Total Protein 8.0 (6.5-8.0) g/dL Albumin 4.2 (3.5-5.0) g/dL Prescription Management I considered prescription management with: Other (laxatives) Chronic Conditions Patient?s care impacted by: Other (chronic constipation) Discharge Plan Discharge Clinical Impression: Bleeding internal hemorrhoids, Chronic constipation Patient Disposition: Home, Self-Care Instructions: Constipation (ED), Hemorrhoids (ED), Lipoma (ED) Additional Instructions: Increase the fiber in your diet as much as possible. Use stool softeners and laxatives to help have regular bowel movements. Drink plenty of water. Follow up with your primary care doctor as needed. Return to the emergency department with any new or worsening symptoms including: Worsening abdominal pain despite medications, fevers greater than 100?, worsening bleeding, passing out, any new symptom that concerns you. Call 911 with any medical emergency. Constipation Remedy 1 Lb prunes 1 Lb pitless dates 1 Lb raisins 16 teabags Smooth Move tea brewed in 2 cups water 1 Cup brown sugar 1 Cup lemon juice Mix in a geoscience professor Put in freezer (never completely freezes) Can be used as a spread on crackers, toast, etc. (about 1-2 tablespoons per dose) Prescriptions: No Action sulfamethoxazole-trimethoprim [Bactrim DS] 800-160 mg tablet 1 tab PO Q12H 7 Days Qty: 14 0RF amoxicillin-pot clavulanate [Augmentin] 875-125 mg tablet 1 tab PO BID Qty: 14 0RF svtozaxpmm-kwgdutrlfishe-kzbx 50-325-40 mg tablet 1 tab PO Q6H PRN (Reason: pain) Qty: 10 0RF fluticasone propionate [Flonase Allergy Relief] 50 mcg/actuation spray,suspension 1 spray intranasal BID Qty: 16 0RF Rx Instructions: administer into each nostril ondansetron 4 mg tablet,disintegrating 4 mg PO Q8H PRN (Reason: nausea and vomiting) Qty: 6 0RF cozvmvpemz-ojmhnebzdfkhu-phaa 50-325-40 mg tablet 1 tab PO Q4-6H PRN (Reason: pain) Qty: 10 0RF fluticasone propionate [Flonase Allergy Relief] 50 mcg/actuation spray,suspension 2 spray intranasal DAILY Qty: 16 0RF Rx Instructions: administer into each nostril Interventions: ED Discharge Assessment Last Done: 08/15/25 00:27 Discharge Date/Time: 08/15/25 00:27 Print Language: Cape Verdean
[2025-08-14 20:25] LABS: MANUAL DIFF FLAG NO
--- OUTSIDE RECORDS SUMMARY | 2025-08-14 20:25 | XMS_ITS | Encounter Summary ---
Author Organization [employer] Address [address] [facility] [address]t [place] [address] Care Team Providers Care Machining Technician Name Role Phone Unavailable Primary Care Provider Unavailabl e Encounter Details Date Type Department Care Team (Late st Contact Info) Description 08/12/2025 Results Follow-Up [facility] [address] [place] [phone] Caron Walsh NP [address] [place] [address] Chest Social History Tobacco Use Types Packs/Day Years [...]
[2025-08-14 20:26] LABS: Hematocrit 40.2 % (37.0-47.0); Hemoglobin 13.6 g/dl (12.0-16.0); Imm Gran Abs Auto 0.02 X10*3/uL (0.00-0.03); Imm Gran Pct Auto 0.2 % (0.0-0.4); Lymphocytes Absolute Auto 2.9 X10*3/uL (1.2-4.9); Mean Corpuscular HGB Conc 33.8 g/dl (31.0-35.0); Mean Corpuscular Hemoglobin 30.0 pg (27.0-33.0); Mean Corpuscular Volume 88.7 fL (80.0-98.0); NRBC Abs Auto 0.000 X10*3/uL (0.0-0.012); NRBC Pct Auto 0.0 /100WBC (0.0-0.2); Platelet Count 285 X10*3/uL (160-400); Red Blood Count 4.53 X10*6/uL (4.20-5.50); White Blood Count 9.0 X10*3/uL (4.8-10.8)
--- OUTSIDE RECORDS SUMMARY | 2025-08-14 20:26 | XMS_ITS | Encounter Summary ---
Author Organization [employer] Address [address] [facility] [address]t [place] [address] Care Team Providers Care Rotary Cutter Feeder Name Role Phone Sri Duval MD Primary Care Provider + Encounter Details Date Type Department Care Team ([facility] st Contact Info) Description 08/28/2023 Telephone [facility] [address] [place] [address] Sri Duval MD [address] [place] [address] Social History Tobacco Use Types Packs/Day Years [...] on filedocumented in this encounter Care Teams Rotary Cutter Feeder Relationship Specialty Start Date End Date Sri Duval MD [address] [place], [place] [phone] PCP - General Family Medicine 07/30/19 12/31/23 documented as of this encounter
--- OUTSIDE RECORDS SUMMARY | 2025-08-14 20:26 | XMS_ITS | Encounter Summary ---
Author Organization [employer] Address [address] [facility] [address]t [place] [address] Care Team Providers Care Ranch Rider Name Role Phone Sri Duval MD Primary Care Provider + Encounter Details Date Type Department Care Team (Late st Contact Info) Description 10/21/2022 Abstract [facility] [address] [place] [address] Provider, MD Karen Social History Tobacco Use [...] on filedocumented in this encounter Care Teams Ranch Rider Relationship Specialty Start Date End Date Sri Duval MD [address] [place] [address] PCP - General Family Medicine 07/30/19 12/31/23 documented as of this encounter
--- OUTSIDE RECORDS SUMMARY | 2025-08-14 20:26 | XMS_ITS | Clinical Summary ---
Author Organization [employer] Address [address] [facility] [address] [place] [address] Care Team Providers Care Pumper Head Name Role Phone Unavailable Primary Care Provider [...] Encounters Date Type Department Care Team Description 08/12/2025 Results Follow-Up [facility] [address] [place] [address] Caron Walsh NP US Chest 06/27/2025 6:20 PM EDT Office Visit [facility] [address] [place] [address] KyramCaron NP Swelling of clavicular region (Primary Dx); [...] 08/20/2022 08/20/2012 Mammogram 2023 01/15/2017 COVID-19 Vaccine (1 - 2023-2 5 season) 2025 Influenza Vaccine [...] Procedure Name Priority Date/Time Associated Diagnosis Comments US CHEST Routine 08/11/2025 3:55 PM EDT Swelling of clavicular region BASIC METABOLIC PANEL Routine 06/28/2025 11:57 AM EDT Chronic right shoulder pain HM MAMMOGRAPHY Routine 01/15/2017 from Last 3 Months or Most Recently Relevant to Health Maintenance Results * US Chest (08/11/2025 3:55 PM EDT) Anatomical Region Laterality Modality Chest Ultrasound 08/11/2025 3:55 PM EDT Narrative 08/11/2025 5:03 PM EDT [address] [address] Ultrasound Report Signed Patient: Nolan Rush MR#: [id number] : 1985 Acct:[id number] Age/Sex: 40 / F ADM Date: 08/11/25 Loc: HO.US Attending Dr: Caron Walsh Ordering Physician: Caron Walsh Date of Service: 08/11/25 Procedure(s): US chest Accession Number(s): [id number] cc: Caron Walsh Reason for Exam: swelling/mass of right clavicular region EXAMINATION: US CHEST CLINICAL INFORMATION: Swelling/mass right clavicular region COMPARISON: None available. TECHNIQUE: Grayscale and color Doppler imaging was performed to evaluate the soft tissues in the right supraclavicular region FINDINGS: There is a circumscribed mass that is nearly isoechoic to subcutaneous adipose tissue. It measures 6.7 x 2.3 x 5.4 cm CC by AP by transverse. On color Doppler, minimal internal blood flow is demonstrated. US/US chest IMPRESSION: There is a solid right supraclavicular mass in the subcutaneous soft tissues measuring 6.7 x 2.3 x 5.4 cm's. If further characterization is indicated, follow-up with MRI. Electronically signed by: Felipe Ozuna MD 08/11/2025 05:00 PM EDT Dictated By: Felipe Ozuna MD Signed By: <Electronically signed by Felipe Ozuna MD in OV> 08/11/25 1700 DD/ 1555 TD/TT: 08/11/25 1611 Netbackup Engineer: Procedure Note Donotuseinterpreter, Image - 08/11/[address] [address] Ultrasound Report Signed Patient: Nolan Rush MR#: [id number] : 1985Acct:[id number] Age/Sex: 40 / FADM Date: 08/11/25 Loc: HO.US Attending Dr: Caron Walsh Ordering Physician: Caron Walsh Date of Service: 08/11/25 Procedure(s): US chest Accession Number(s): [id number] cc: Caron Walsh Reason for Exam: swelling/mass of right clavicular region EXAMINATION: US CHEST CLINICAL INFORMATION: Swelling/mass right clavicular region COMPARISON: None available. TECHNIQUE: Grayscale and color Doppler imaging was performed to evaluate the soft tissues in the right supraclavicular region FINDINGS: There is a circumscribed mass that is nearly isoechoic to subcutaneous adipose tissue. It measures 6.7 x 2.3 x 5.4 cm CC by AP by transverse. On color Doppler, minimal internal blood flow is demonstrated. US/US chest IMPRESSION: There is a solid right supraclavicular mass in the subcutaneous soft tissues measuring 6.7 x 2.3 x 5.4 cm's. If further characterization is indicated, follow-up with MRI. Electronically signed by: Felipe Ozuna MD 08/11/2025 05:00 PM EDT Dictated By: Felipe Ozuna MD Signed By: <Electronically signed by Felipe Ozuna MD in OV> 08/11/25 1700 DD/ 1555 TD/TT: 08/11/25 1611 Netbackup Engineer: us Caron Walsh RETAIL SELLING SPECIALIST IMG US PROCEDURES Final Result * (ABNORMAL) Basic Metabolic Panel (06/28/2025 11:57 AM EDT) Sodium 140 135 - 145 mmol/L [facility] Potassium 4.4 3.3 - 5.1 mmol/L [facility] Chloride 104 96 - 108 mmol/L [facility] Carbon Dioxide 30(H) 22 - 29 mmol/L [facility] Anion Gap 10(L) 12 - 20 [facility] Urea Nitrogen (BUN) 5(L) 9 - 16 mg/dL [facility] Creatinine, Serum 0.71 0.5 - 1.4 mg/dL [facility] Estimated Glomerular Filt Rate >60 [facility] Comment:Chronic Kidney Disea se: Estimated GFR < 60 mL/min/1.58h7Vlloje Kidney Disease: Estimated GFR < 15 mL/min/1.73m2 Glucose 99 60 - 115 mg/dL [facility] Calcium 9.0 8.4 - 10.2 mg/dL [facility] Blood Venous blood specimen / Unknown 06/28/2025 11:57 AM EDT 06/28/2025 1:29 PM EDT Caron Walsh RETAIL SELLING SPECIALIST LAB BLOOD ORDERABLES Final Resu lt [facility] [address] [place] [address] [phone] * Mammography (01/15/2017) Mammogram performed Anatomical Region Laterality Modality Other Historical Provider HEALTH MAINTENANCE Final Result from Last 3 Months or Most Recently Relevant to Health Maintenance Insurance [facility] C3 HSN FULL
[2025-08-14 20:48] LABS: Alanine Aminotransferase 10 U/L (0-31); Albumin Level 4.2 g/dL (3.5-5.0); Alkaline Phosphatase 107 U/L (39-117); Anion Gap 11 (12-20); Aspartate Amino Transferase 21 U/L (5-31); Blood Urea Nitrogen 5 mg/dL (9-16); Calcium 9.1 mg/dL (8.4-10.2); Carbon Dioxide 30 mmol/L (22-29); Chloride 102 mmol/L (96-108); Creatinine Clr Calc Pharmacy 105.6; Estimated Glomerular Filt Rate > 60; Potassium 4.1 mmol/L (3.3-5.1); Sodium 139 mmol/L (135-145); Total Protein 8.0 g/dL (6.5-8.0)
[2025-08-15 00:02] VITALS: BP 130/58; PULSE 88; RESP 18; TEMP 36.7; O2SAT 99
[2025-08-15 00:27] VITALS: BP 130/58; PULSE 88; RESP 18; TEMP 36.7; O2SAT 99
== END 2025-08-15 00:27 | disposition home or self-care (01) ==
PROVIDERS: Registered Nurse Emergency; Emergency Provider Emergency Medicine
DX: K64.8 Other hemorrhoids (principal); K59.00 Constipation, unspecified; Z79.899 Other long term (current) drug therapy
CPT/HCPCS: 36415; 80053; 85025; 99283